=== PATIENT | male | born 1950 | race Caucasian/White ===

== ENCOUNTER → 2017-11-07 15:29 | Outpatient (CLI) | payer MEDICARE, SELFPAY ==
[2017-11-07 17:08] LABS: Add Manual Diff / Slide Review NO; Basophils Percent Auto 0.5 % (0-2); Eosinophils Percent Auto 2.1 % (2-4); Hematocrit 44.6 % (41-53); Hemoglobin 15.1 g/dL (13.5-17.5); Lymphocytes Percent Auto 14.8 % (25-40); Mean Corpuscular HGB Conc 33.7 % (30-36); Mean Corpuscular Hemoglobin 31.6 PG (26-34); Mean Corpuscular Volume 93.8 fL (80-100); Monocytes Percent Auto 5.4 % (3-14); Neutrophils Absolute Auto 5200 /uL (3000-5900); Neutrophils Percent Auto 77.2 % (50-75); Platelet Count 150 X10^3/uL (150-400); Red Blood Cell Count 4.76 X10^6/uL (4.5-5.9); Red Cell Distribution Width 13.6 % (11.6-14.8); White Blood Cell Count 6.7 X10^3/uL (4.5-11.0)
[2017-11-07 18:05] LABS: Alanine Aminotransferase 26 IU/L (21-72); Albumin 4.3 g/dL (3.5-5.0); Albumin Globulin Ratio 1.7 (1.0-2.8); Alkaline Phosphatase 44 U/L (38-126); Aspartate Aminotransferase 24 IU/L (17-59); BUN Creatinine Ratio 23.3 (6-22); Bilirubin Total 0.6 mg/dL (0.2-1.3); Blood Urea Nitrogen 21 mg/dL (9-20); Calcium 9.6 mg/dL (8.4-10.2); Carbon Dioxide 29 mmol/L (22-32); Chloride 102 mmol/L (98-107); Estimated Glomerular Filt Rate > 60.0 mL/min (>60); Globulin 2.6 g/dL (1.7-4.1); Glucose 89 mg/dL (80-110); HEMOLYSIS < 15 (0-50); Potassium 4.7 mmol/L (3.4-5.1); Sodium 141 mmol/L (137-145); Total Protein 6.9 g/dL (6.3-8.2)
== END ==
PROVIDERS: PCP Family Medicine; Visit Provider Surgery
DX: K40.90 Unilateral inguinal hernia, without obstruction or gangrene, not specified as recurrent (principal)
CPT/HCPCS: 36415; 80053; 85025; 99214

== ENCOUNTER → 2018-01-31 14:23 | Outpatient (REF) | payer MEDICARE, SELFPAY | LOC: LAB 14:23 | PROVIDERS: PCP Family Medicine; Visit Provider Nurse Practitioner Family | DX: R31.0 Gross hematuria (principal) | CPT/HCPCS: 87077; 87086 ==

== ENCOUNTER → 2018-02-01 08:47 | Outpatient (CLI) | payer MEDICARE, SELFPAY ==
--- NOTE | 2018-02-01 | DI.CT.S_ITS ---
PROCEDURE: CT KIDNEY URETER BLADDER (KUB) INDICATIONS: GROSS HEMATURIA, left flank pain TECHNIQUE: Noncontrast 5 mm thick sections acquired from the diaphragms to the symphysis. 5 mm thick coronal and sagittal reformats were then performed. For radiation dose reduction, the following was used: automated exposure control, adjustment of mA and/or kV according to patient size. COMPARISON: [facility], , CT KUB, 08/10/2002, 11:31. FINDINGS: Image quality: Excellent. Lung bases: There is mild scarring in the left lung base. Heart size is normal. A large hiatal hernia is present. Urinary system: There is a large heterogeneous mass involving the anterior aspect of the left kidney measuring up to 9.5 x 6.0 x 6.8 cm. There is extension into the renal hilum with likely invasion of the renal vein which is not well evaluated in the absence of intravenous contrast. There is also suspected invasion of the left renal collecting system. There is perinephric extension anteriorly and superiorly, with the mass abutting the os tear margin of the descending colon. Early colonic invasion cannot be excluded. No hydronephrosis. No discrete renal mass identified on noncontrast images. No renal stones. The ureters are nondistended. The urinary bladder is partially distended. No calcified renal stones. No discrete mass identified on noncontrast images. Other solid organs: There is a small cysts peripherally in the right hepatic lobe measuring up to 1.5 cm. A smaller focal hypodensity in the superior left hepatic lobe measuring up to 0.4 cm is too small to characterize but likely represents a cyst. Gallbladder appears within normal limits without calcified gallstones. Pancreas is normal in contours. Spleen is normal in size. No adrenal nodules. Peritoneum and bowel: Unenhanced bowel loops demonstrate normal wall thickness and caliber. There is colonic diverticulosis without acute diverticulitis. No free fluid or air. Nodes and vessels: No retroperitoneal or mesenteric adenopathy by size criteria. Aorta and inferior vena cava are normal in caliber. Abdominal wall: No ventral hernias. Pelvis: No free pelvic fluid. No inguinal hernias or adenopathy. Bones: No suspicious bony lesions. No vertebral body compression fractures. IMPRESSION: 1. Large heterogeneous left renal mass most likely representing renal cell carcinoma. 2. Suspected mass invasion of the left renal vein and left renal collecting system as well as possible early invasion of the descending colon. Further evaluation may be obtained with a contrast enhanced study, with CT IVP technique for evaluation of the collecting system, if clinically indicated. 3. No evidence of lymphadenopathy. Findings discussed with Dr. Fairhcild on 02/01/18 at 10:10 AM. Dictated by: Burt Uriarte M.D. on 02/01/2018 at 9:54 Approved by: Burt Uriarte M.D. on 02/01/2018 at 10:21
== END ==
PROVIDERS: PCP Family Medicine; Visit Provider Nurse Practitioner Family
DX: N28.89 Other specified disorders of kidney and ureter (principal); R31.0 Gross hematuria; R10.9 Unspecified abdominal pain; K76.89 Other specified diseases of liver; K57.90 Diverticulosis of intestine, part unspecified, without perforation or abscess without bleeding
CPT/HCPCS: 74176

== ENCOUNTER → 2018-02-03 13:34 | Outpatient (CLI) | payer MEDICARE, SELFPAY ==
--- NOTE | 2018-02-03 13:35 | DI.CT.S_ITS ---
PROCEDURE: CT CHEST W CON INDICATIONS: Left renal mass found on CT KUB TECHNIQUE: After the administration of intravenous contrast, 5 mm thick sections acquired from the pulmonary apices to the posterior costophrenic angles. 7 mm thick coronal and sagittal MIP reformats were acquired. For radiation dose reduction, the following was used: automated exposure control, adjustment of mA and/or kV according to patient size. COMPARISON: [facility], CT, CT KIDNEY URETER BLADDER (KUB), 02/01/2018, 8:47. FINDINGS: Image quality: Excellent. Lungs and pleura: No acute air space opacities. No pleural effusions or pneumothorax. Central and peripheral airways are patent and normal in caliber. Mediastinum: Heart size is normal. No pericardial effusion. No mediastinal or hilar adenopathy by size criteria. Thoracic aorta and central pulmonary arteries are normal in size. Esophagus is normal in caliber. There is a large hiatal hernia behind the heart. Bones and chest wall: No suspicious bony lesions. No vertebral body compression fractures. No axillary or supraclavicular adenopathy by size criteria. Thyroid gland appears normal where well visualized. Abdomen: Visualized upper abdominal solid organs appear normal except for the previously documented partially visualized large lobulated renal cortical mass on the left, consistent with renal cell carcinoma. Upper abdominal bowel loops are normal in caliber. IMPRESSION: Large lobulated left renal cortical malignancy by appearance, with a typical appearance of renal cortical carcinoma. No metastatic disease found. Incidental note is made of a large hiatal hernia behind the heart. Dictated by: Delvis Vazquez M.D. on 02/03/2018 at 14:36 Approved by: Delvis Vazquez M.D. on 02/03/2018 at 14:39
--- NOTE | 2018-02-03 13:35 | DI.CT.S_ITS ---
PROCEDURE: CT ABDOMEN PELVIS W CON INDICATIONS: LEFT KIDNEY MASS FOUND ON CT KUB TECHNIQUE: After the administration of intravenous contrast, 5 mm thick sections acquired from the diaphragm to the symphysis. 5 mm coronal and sagittal reformats were acquired. For radiation dose reduction, the following was used: automated exposure control, adjustment of mA and/or kV according to patient size. COMPARISON: None. FINDINGS: Image quality: Excellent. ABDOMEN: Lung bases: Lung bases are clear. Heart size is normal. A large hiatal hernia is present behind the heart. Solid organs: Liver is normal in size and enhancement. There are several small hepatic simple cysts. Gallbladder appears normal. Biliary system is non dilated. Pancreas enhances normally. Spleen is normal in size and enhancement. No adrenal nodules. The right kidney demonstrates normal size and enhancement, without hydronephrosis. The left kidney contains a large lobulated exophytic malignant appearing mass measuring up to 6.3 cm oblique AP and 9.9 cm oblique transverse with a craniocaudad length of 7.2 cm. This mass extends to and may invade the left renal hilar portion of the left renal vein but does not extend rightward from that area towards the IVC. The left renal vein course is retroaortic, as a normal anatomic variant. This may have surgical implications, however. Adjacent engorged the arteries and veins are seen in the retroperitoneal fat associated with this large mass. No adjacent adenopathy is seen. Note is made of an exophytic lower pole renal cortical mass measuring up to 4.1 cm. No right sided renal cortical mass is found. Peritoneum and bowel: Bowel loops demonstrate normal wall thickness and caliber. No free fluid or air. Nodes and vessels: No retroperitoneal or mesenteric adenopathy by size criteria. Aorta and inferior vena cava are normal in size. Miscellaneous: No ventral hernias. PELVIS: Genitourinary: Bladder wall thickness is normal. Miscellaneous: No inguinal hernias or adenopathy. Normal appendix is found. Bones: No suspicious bony lesions. No vertebral body compression fractures. IMPRESSION: Large malignant left renal cortical mass lesion measuring up to 6.3 x 9.9 x 7.2 cm and not associated with evidence of regional adenopathy or distant metastatic disease. This mass invades the renal sinus fat and may invade the far peripheral left renal vein, but extension into the renal vein and crossing towards the right towards the inferior vena cava is not identified. There is a normal anatomic variant retroaortic left renal vein. No osseous metastatic disease is seen. Note is made of several small water density hepatic cysts. Several renal cortical cysts are present the largest which is exophytic from the lower third cortex of the left kidney, measuring up to 4.1 cm. Incidental note is made of a large retroaortic hiatal hernia. Dictated by: Delvis Vazquez M.D. on 02/03/2018 at 14:41 Approved by: Delvis Vazquez M.D. on 02/03/2018 at 14:46
== END ==
PROVIDERS: PCP Family Medicine; Visit Provider Family Medicine
DX: C64.2 Malignant neoplasm of left kidney, except renal pelvis (principal); N28.1 Cyst of kidney, acquired; K76.89 Other specified diseases of liver; K44.9 Diaphragmatic hernia without obstruction or gangrene
CPT/HCPCS: 71260; 74177; Q9967

== ENCOUNTER 2018-07-05 13:08 | Outpatient (RCR) | payer MEDICARE, SELFPAY ==
--- NOTE | 2018-07-05 17:51 | PT.OIE ---
Current Diagnoses Meniere's disease, left ear (07/05/18) Stiffness of unspecified joint, not elsewhere classified (07/05/18) Dizziness and giddiness (07/05/18) Strain of muscle, fascia and tendon at neck level, initial encounter (07/05/18) Past Medical History (Last Reviewed 11/08/17 @ 11:51 by Nemesio Magallon MD) Duodenal diverticulum (Acute) Hiatal hernia (Acute) History of anemia (Acute) History of hemorrhoids (Acute) Osteoarthritis (Acute) Right inguinal hernia (Acute) Gastrointestinal hemorrhage (Resolved) Past Surgical History (Last Reviewed 11/08/17 @ 11:51 by Nemesio Magallon MD) History of colonoscopy (Acute) History of esophagogastroduodenoscopy (EGD) (Acute) Status post arthroscopic knee surgery (Acute) Status post hemorrhoidectomy (Acute) Provider Visit Care Team Role Provider Type Angus Fairchild MD Attending Provider Physician Primary Care Provider Specialty: [facility] Address: [address] [place] [address], [facility] Email: 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 Much of his session was spent discussing his Meniere's disease. Pt reports his first episode was 10-12 years ago, and since then, he has ~one episode each year, although they seem to be getting more frequent. Pt notes that during his episodes , he is unable to do anything . I'm completely incapacitated , basically just on the floor vomiting, and cannot get up to do anything. But after the episode is over, I'm fine. I have no balance problems at all. Pt notes his left hearing has been worsening dramatically since his initial episode, and is now almost completely deaf, but has near- constant ringing and pressure, worsening during an episode. Pt reports that he has quit drinking alcohol, smoking, drinking coffee, and drastically cut out the amount of salt in his diet, but he continues to have episodes. Pt admits that when he is not having an episode, he has high anxiety about when the next one will occur. In addition to his Meniere's symptoms, pt was diagnosed with renal cancer four months ago, and underwent the removal of one of his kidneys. During that time, he began experiencing neck pain, and after initially fearing that it was a sign his cancer had spread, he obtained a cervical CT, which was clean. Pt has since been to a chiropractor and a massage therapist, who have both told him his muscles are very tight, but they were unable to help his pain. Treatment Goals Patient/Caregiver Goals Understand possible treatment for Meniere's disease, decrease cervical pain Prior Functional Status Baseline Function- ADL's Independent Baseline Function- Mobility Independent Current Functional Impairments (Reported) Functional Limitations- ADL's Pt completely incapicated during Meniere's episode, no ongoing issues in-between episodes Personal Factors Other Personal Factors That May Effect Meniere's disease, Renal Therapy/Recovery cancer, Kidney removal PT-OP-C Subjective Start: 07/05/18 15:36 Freq: Status: Active Protocol: Document 07/05/18 13:45 DCW (Rec: 07/05/18 17:51 DCW [id number]) OP-PT Subjective Patient Comments Patient Reported Progress Worse Patient Questionnaires Dizziness Handicap Inventory DHI Score 30% DHI Functional Impairment 20 to 39% Impaired (Score 20- 39) PT-OP-F Manual Assessment Start: 07/05/18 15:36 Freq: Status: Active Protocol: Document 07/05/18 13:45 DCW (Rec: 07/05/18 17:51 DCW [id number]) Manual Assessments Soft Tissue Assessment Soft Tissue Mobility Assessment Severe bilateral upper trap and levator tone, tenderness to palpation 3/4 - Wincing and withdraw. At baseline, elevated left shoulder secondary to tone Joint Mobility Assessment Joint Mobility Assessment C4 vertebrae rotated clockwise out of position PT-OP-K Range of Motion Start: 07/05/18 15:36 Freq: Status: Active Protocol: Document 07/05/18 13:45 DCW (Rec: 07/05/18 17:51 DCW [id number]) Cervical Spine Range of Motion Cervical Spine Active Degrees Testing Position Sitting Flexion 55 Extension 40 Rotation Left 60 Rotation Right 50 Lateral Flexion Left 30 Lateral Flexion Right 25 Comments Pt at 5? left lateral flexion at rest PT-OP-L Special Tests Start: 07/05/18 15:36 Freq: Status: Active Protocol: Document 07/05/18 13:45 DCW (Rec: 07/05/18 17:51 DCW [id number]) Special Tests Cervical Spine Special Tests Traction Test Results Positive Comments That helps. Passive Neck Flexion Test Results Negative Comments Feels like it's stretching Foraminal Compression Test Results Negative Alar Ligament Test Results Negative PT-OP-Q Treatments Start: 07/05/18 15:36 Freq: Status: Active Protocol: Document 07/05/18 13:45 DCW (Rec: 07/05/18 17:51 DCW [id number]) Therapeutic Exercises Sitting Exercises Upper Trap Stretch Sitting Exercise Name Upper Trap Stretch Side bilateral Scalene Stretch Sitting Exercise Name Scalene stretch Side bilateral PT-OP-T Assessment and Plan Start: 07/05/18 15:36 Freq: Status: Active Protocol: Document 07/05/18 13:45 DCW (Rec: 07/05/18 17:51 DC [id number]) Physical Therapy Assessment Rehab Potential Rehabilitation Potential Fair Evaluation Complexity Number of Personal Factors/Comorbidities 3 or More Number of Body Systems Impaired 4 or More Clinical Presentation at Evaluation Unstable Impairments Impairments Pain Posture ROM Soft Tissue Mobility Vestibular Goals Three Impairment Tenderness to palpation of B UT and Levator 3/4 - Wincing and withdraw Manager [place] Goal (LTG) Pt to exhibit tenderness to palpation 1/4 - complaint of pain with palpation of bilateral upper trap and levator scap. LTG Duration 09/04/18 Two Impairment Pt has pain and stiffness trying to turn around when backing up in his car Manager [place] Goal (LTG) Pt to improve bilateral cervical rotation to 80? with no increase in symptoms to improve ease and safety when backing up his car LTG Duration 09/04/18 One Impairment Pt does not have an appropriate home exercise program Short Term Goal (STG) Pt to be independent and compliant with and appropriate HEP STG Duration 08/04/18 Assessment Summary Assessment Most of today's evaluation was spent discussing symptoms, management, possible causes and treatments for Meniere's disease. Unfortunately, due to the nature of Meniere's disease, vestibular rehabilitation is ineffective for treatment, unless pt has ongoing balance issues following a Meniere's episode, which this patient denies. Did discuss with pt what he has already been doing for Meniere's maintainence, including no longer drinking coffee or alcohol, quitting smoking, and limiting salt intake, which may help decrease symptoms. Pt was also interested in more extreme fixes, which may include an intratympanic injection of Gentamicin. Pt's neck pain was assessed in the time remaining, and his symptoms are consistent with severe tone in his upper traps and levators, causing a left lateral head tilt at rest and also causing his C4 vertebrae to become rotated clockwise. Pt's neck pain should improve with skilled therapy focusing on flexibility, strengthening, manual therapy, and heat to decrease tone. Physical Therapy Plan Frequency and Duration Frequency of Treatment 2x/Week Duration of Treatment 10 weeks Plan of Care Start Date 07/05/18 Plan of Care End Date 09/13/18 Therapeutic Interventions Therapeutic Interventions Home Exercise Program Joint Mobilizations Manual Therapy Patient/Caregiver Education Self-Care/Home Management Therapeutic Exercises Vestibular Rehabilitation Modalities Cold Pack/Ice Massage Hot Packs Next Visit Focus/Plan Next Note Type Treatment Note Next Visit Plan Cervical manual therapy, flexibility, cervical strengthening
--- NOTE | 2018-07-05 17:53 | PT.OPPOC ---
Current Diagnoses Meniere's disease, left ear (07/05/18) Stiffness of unspecified joint, not elsewhere classified (07/05/18) Dizziness and giddiness (07/05/18) Strain of muscle, fascia and tendon at neck level, initial encounter (07/05/18) Provider Visit Care Team Role Provider Type Angus Fairchild MD Attending Provider Physician Primary Care Provider Specialty: Family Practice Address: [address] [place] [address], [facility] Email: [email or web address] Plan Of Care PT-OP-T Assessment and Plan Start: 07/05/18 15:36 Freq: Status: Active Protocol: Document 07/05/18 13:45 DCW (Rec: 07/05/18 17:51 DCW [id number]) Physical Therapy Assessment Rehab Potential Rehabilitation Potential Fair Evaluation Complexity Number of Personal Factors/Comorbidities 3 or More Number of Body Systems Impaired 4 or More Clinical Presentation at Evaluation Unstable Impairments Impairments Pain Posture ROM Soft Tissue Mobility Vestibular Goals Three Impairment Tenderness to palpation of B UT and Levator 3/4 - Wincing and withdraw Skilled Nursing Goal (LTG) Pt to exhibit tenderness to palpation 1/4 - complaint of pain with palpation of bilateral upper trap and levator scap. 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 with no increase in symptoms to improve ease and safety when backing up his car LTG Duration 09/04/18 One Impairment Pt does not have an appropriate home exercise program Short Term Goal (STG) Pt to be independent and compliant with and appropriate HEP STG Duration 08/04/18 Assessment Summary Assessment Most of today's evaluation was spent discussing symptoms, managment, possible causes and treatments for Meniere's disease. Unfortunately, due to the nature of Meniere's disease, vestibular rehabilitation is ineffective for treatment, unless pt has ongoing balance issues following a Meniere's episode, which this patient denies. Did discuss with pt what he has already been doing for Meniere's maintainence, including no longer drinking coffee or alcohol, quitting smoking, and limiting salt intake, which may help decrease symptoms. Pt was also interested in more extreme fixes, which may include an intratympanic injection of Gentamicin. Pt's neck pain was assessed in the time remaining, and his symptoms are consistent with severe tone in his upper traps and levators, causing a left lateral head tilt at rest and also causing his C4 vertebrae to become rotated clockwise. Pt's neck pain should improve with skilled therapy focusing on flexibility, strengthening, manual therapy, and heat to decrease tone. Physical Therapy Plan Frequency and Duration Frequency of Treatment 2x/Week Duration of Treatment 10 weeks Plan of Care Start Date 07/05/18 Plan of Care End Date 09/13/18 Therapeutic Interventions Therapeutic Interventions Home Exercise Program Joint Mobilizations Manual Therapy Patient/Caregiver Education Self-Care/Home Management Therapeutic Exercises Vestibular Rehabilitation Modalities Cold Pack/Ice Massage Hot Packs Next Visit Focus/Plan Next Note Type Treatment Note Next Visit Plan Cervical manual therapy, flexibility, cervical strengthening Plan of Care Dates Plan of Care Start Date 07/05/18 Plan of Care End Date 09/13/18 Please Sign and Return: I have reviewed this Plan of Care and certify that the skilled therapy services above are required to meet the patient?s needs. Physician Signature Date Printed Name and Credentials Clinical Instructor Signature Printed Name and Credentials
--- NOTE | 2018-09-27 15:10 | PT.OPDS ---
Current Diagnoses Meniere's disease, left ear (07/05/18) Stiffness of unspecified joint, not elsewhere classified (07/05/18) Dizziness and giddiness (07/05/18) Strain of muscle, fascia and tendon at neck level, initial encounter (07/05/18) Provider Visit Care Team Role Provider Type Angus Fairchild MD Attending Provider Physician Primary Care Provider Specialty: [facility] Address: [address] [place] [address], [facility] Email: [email or web address] Visit Number Visit Number 1 Discharge Summary PT-OP-B Current Condition Start: 07/05/18 15:36 Freq: Status: Active Protocol: Document 07/05/18 13:45 DCW (Rec: 07/05/18 17:51 DCW [id number]) Current Condition History of Current Condition Onset Date vertigo s/p 10-12 years, cervical pain s/p 4 months Current Complaints Ongoing Meniere's Disease symptoms, cervical pain History of Current Condition Pt is a 68 year old male presenting to his physical therapy initial evaluation with a referral for vestibular rehabilitation and a cervical muscle strain. Much of his session was spent discussing his Meniere's disease. Pt reports his first episode was 10-12 years ago, and since then, he has ~one episode each year, although they seem to be getting more frequent. Pt notes that during his episodes , he is unable to do anything . I'm completely incapacitated , basically just on the floor vomiting, and cannot get up to do anything. But after the episode is over, I'm fine. I have no balance problems at all. Pt notes his left hearing has been worsening dramatically since his initial episode, and is now almost completely deaf, but has near- constant ringing and pressure, worsening during an episode. Pt reports that he has quit drinking alcohol, smoking, drinking coffee, and drastically cut out the amount of salt in his diet, but he continues to have episodes. Pt admits that when he is not having an episode, he has high anxiety about when the next one will occur. In addition to his Meniere's symptoms, pt was diagnosed with renal cancer four months ago, and underwent the removal of one of his kidneys. During that time, he began experiencing neck pain, and after initially fearing that it was a sign his cancer had spread, he obtained a cervical CT, which was clean. Pt has since been to a chiropractor and a massage therapist, who have both told him his muscles are very tight, but they were unable to help his pain. Treatment Goals Patient/Caregiver Goals Understand possible treatment for Meniere's disease, decrease cervical pain Prior Functional Status Baseline Function- ADL's Independent Baseline Function- Mobility Independent Current Functional Impairments (Reported) Functional Limitations- ADL's Pt completely incapicated during Meniere's episode, no ongoing issues in-between episodes Personal Factors Other Personal Factors That May Effect Meniere's disease, Renal Therapy/Recovery cancer, Kidney removal PT-OP-C Subjective Start: 07/05/18 15:36 Freq: Status: Active Protocol: Document 07/05/18 13:45 DCW (Rec: 07/05/18 17:51 DCW [id number]) OP-PT Subjective Patient Comments Patient Reported Progress Worse Patient Questionnaires Dizziness Handicap Inventory DHI Score 30% DHI Functional Impairment 20 to 39% Impaired (Score 20- 39) PT-OP-F Manual Assessment Start: 07/05/18 15:36 Freq: Status: Active Protocol: Document 07/05/18 13:45 DCW (Rec: 07/05/18 17:51 DCW [id number]) Manual Assessments Soft Tissue Assessment Soft Tissue Mobility Assessment Severe bilateral upper trap and levator tone, tenderness to palpation 3/4 - Wincing and withdraw. At baseline, elevated left shoulder secondary to tone Joint Mobility Assessment Joint Mobility Assessment C4 vertebrae rotated clockwise out of position PT-OP-K Range of Motion Start: 07/05/18 15:36 Freq: Status: Active Protocol: Document 07/05/18 13:45 DCW (Rec: 07/05/18 17:51 DCW [id number]) Cervical Spine Range of Motion Cervical Spine Active Degrees Testing Position Sitting Flexion 55 Extension 40 Rotation Left 60 Rotation Right 50 Lateral Flexion Left 30 Lateral Flexion Right 25 Comments Pt at 5? left lateral flexion at rest PT-OP-L Special Tests Start: 07/05/18 15:36 Freq: Status: Active Protocol: Document 07/05/18 13:45 DCW (Rec: 07/05/18 17:51 DCW [id number]) Special Tests Cervical Spine Special Tests Traction Test Results Positive Comments That helps. Passive Neck Flexion Test Results Negative Comments Feels like it's stretching Foraminal Compression Test Results Negative Alar Ligament Test Results Negative PT-OP-T Assessment and Plan Start: 07/05/18 15:36 Freq: Status: Active Protocol: Document 09/27/18 15:09 DC (Rec: 09/27/18 15:10 [facility] [id number]) Physical Therapy Assessment Goals Three Impairment Tenderness to palpation of B UT and Levator 3/4 - Wincing and withdraw Metal Riveter Goal (LTG) Pt to exhibit tenderness to palpation 1/4 - complaint of pain with palpation of bilateral upper trap and levator scap. LTG Duration 09/04/18 Two Impairment Pt has pain and stiffness trying to turn around when backing up in his car Longterm Goal (LTG) Pt to improve bilateral cervical rotation to 80? with no increase in symptoms to improve ease and safety when backing up his car LTG Duration 09/04/18 One Impairment Pt does not have an appropriate home exercise program Short Term Goal (STG) Pt to be independent and compliant with and appropriate HEP STG Duration 08/04/18 Assessment Summary Assessment Pt did not return for cervical treatment following his initial evaluation. Pt has now not been seen in more than two months, and will be discharged from skilled therapy at this time. Pt will require a new referral in order to return to therapy. Physical Therapy Plan Discharge Physical Therapy Discharge Reasons No Longer Attending PT Next Visit Focus/Plan Next Note Type Discharge Summary
== END 2018-09-28 11:03 | disposition home or self-care (01) ==
LOC: PHYS 13:08
PROVIDERS: PCP Family Medicine; Visit Provider Family Medicine
DX: R42 Dizziness and giddiness (principal); S16.1XXA Strain of muscle, fascia and tendon at neck level, initial encounter; M25.60 Stiffness of unspecified joint, not elsewhere classified; H81.02 Meniere's disease, left ear
CPT/HCPCS: 97110; 97162

== ENCOUNTER → 2019-01-24 07:48 | Outpatient (CLI) | payer MEDICARE, SELFPAY ==
--- NOTE | 2019-01-24 | DI.MRI.S_ITS ---
PROCEDURE: MR ANGIO HEAD WO CON INDICATIONS: Diplopia TECHNIQUE: Noncontrast axial 3-D [id number] MR angiogram, with 3-dimensional maximum intensity projection (MIP) reformats of the internal carotid arteries and posterior circulation then performed. COMPARISON: Brain MRI 01/12/02. FINDINGS: Image quality: Excellent. Anterior circulation: Intracranial internal carotid arteries demonstrate normal size and intraluminal flow signal. The flow within the paired anterior cerebral arteries is normal and symmetric. The flow within the middle cerebral arteries is normal and symmetric. The anterior communicating artery is seen. No stenoses, occlusions, or aneurysms. Posterior circulation: Visualized portions of the vertebral arteries demonstrate normal caliber, and join to form a normal appearing basilar artery. There is a prominent right posterior communicating artery seen, with an accompanying diminutive right P1 segment. This is attributed to a type origin of the right posterior cerebral artery, which is considered to be a normal developmental variant of typically no clinical consequence. The flow within the posterior cerebral arteries is normal and symmetric. No stenoses, occlusions, or aneurysms. IMPRESSION: No aneurysms or other significant abnormalities are seen to explain patient's presenting history of diplopia. If it would be helpful for clinical management decision making, please consider a dedicated orbits protocol MRI (without and with contrast). Dictated by: Jose D Walker M.D. on 01/24/2019 at 8:11 Approved by: Jose D Walker M.D. on 01/24/2019 at 8:13
== END ==
PROVIDERS: PCP Family Medicine; Visit Provider Nurse Practitioner Family
DX: H53.2 Diplopia (principal)
CPT/HCPCS: 70544

== ENCOUNTER → 2021-05-11 14:44 | Outpatient (CLI) | payer MEDICARE, SELFPAY ==
--- NOTE | 2021-05-11 | DI.US.S_ITS ---
PROCEDURE: US RENAL COMPLETE INDICATIONS: HISTORY OF RENAL CELL CARCINOMA TECHNIQUE: Real-time scanning was performed of the kidneys and bladder, with image documentation. COMPARISON: None. FINDINGS: Kidneys: Left kidney surgically absent. Right kidney measures 12.7 cm long. Right renal cortical thickness is 1.8 cm. Right renal cortical echotexture is normal. No right-sided hydronephrosis or nephrolithiasis. No right renal suspicious solid mass lesions. Bladder: Pre-void bladder volume is 185 mL. Post-void residual is 10 mL. Pre-void images demonstrate no intraluminal masses or stones. On pre-void images, both right and left ureteral jets are noted with color Doppler interrogation. (Of note, ureteral jets may not be detectable in up to 25% of cases due to insufficient differences in specific gravity between ureteral and bladder urine). Miscellaneous: No free pelvic fluid. IMPRESSION: 1. Status post left nephrectomy. 2. Right kidney is sonographically normal. 3. Bladder is sonographically normal. Dictated by: Tabitha Sparks MD, PhD on 05/11/2021 at 16:41 Approved by: Tabitha Sparks MD, PhD on 05/11/2021 at 16:43
== END ==
PROVIDERS: PCP Student in an Organized Health Care Education/Training Program; Referring Provider Urology; Visit Provider Urology
DX: Z08 Encounter for follow-up examination after completed treatment for malignant neoplasm (principal); Z85.528 Personal history of other malignant neoplasm of kidney; Z90.5 Acquired absence of kidney
CPT/HCPCS: 76770

== ENCOUNTER → 2021-07-29 11:02 | Outpatient (CLI) | payer MEDICARE, SELFPAY ==
[2021-07-29 14:32] LABS: COVID19 -Nasal RAPID Negative (Negative)
== END ==
PROVIDERS: PCP Student in an Organized Health Care Education/Training Program; Visit Provider Family Medicine Sleep Medicine
DX: Z20.822 Contact with and (suspected) exposure to COVID-19 (principal)
CPT/HCPCS: 87635; C9803

== ENCOUNTER 2021-07-31 13:31 | Day surgery (SDC) | payer MEDICARE, SELFPAY ==
[2021-07-31] VITALS (8 sets, daily range): BP systolic 102–122; BP diastolic 58–79; PULSE 55–74; RESP 13–21; TEMP 35.9–36.8; O2SAT 95–98; BMI 29.5
--- NOTE | 2021-07-31 | PATH_ITS ---
[facility] Accession Number: [id number] . 01 Material submitted: . PART A: colon - DESCENDING COLON POLYP 4MM PART B: colon - SIGMOID COLON POLYP 8MM . 02 Diagnosis: A. Descending Colon Polyp 4 mm: Tubular adenoma. . B. Sigmoid Colon Polyp 8 mm: Portions of tubular adenoma x 2. MRV 08/06/2021 1504 Local . 02 Electronically signed: . Alicia Amaya MD, Pathologist NPI- [id number] . 01 Gross description: . Part A: DESCENDING COLON POLYP 4MM: Received in formalin is 1 fragment(s) of minor, soft tissue measuring 0.4 x 0.3 x 0.3 cm submitted entirely in 1 cassette(s) Part B: SIGMOID COLON POLYP 8MM: Received in formalin are 2 fragment(s) of minor, soft tissue measuring 0.3 x 0.3 x 0.3 cm to 0.6 x 0.4 x 0.4 cm submitted entirely in 1 cassette(s) /FREDY 08/03/2021 1900 Local . 02 Pathologist provided ICD-10: K63.5, Z12.11 . 02 CPT . 504691, 042197 Specimen Comment: A courtesy copy of this report has been sent to [phone] Performed at: 01 [facility] [address] [facility], [place], [place] [id number] MD Burt Webster MD Phone: [phone] Performed at: 02 [facility] [address] [place], [place] [id number] MD Yadira Newsome MD Phone: [phone]
--- NOTE | 2021-07-31 12:31 | PM.HP.1 ---
History of Present Illness History of Present Illness Chief complaint: [facility] Narrative: 71 year old male comes in today for consideration of a screening colonoscopy. Last colonoscopy in 2010, history of colon polyps. FIT negative on 05/18/2021. In the last year, he has had epigastric pain and black stools, denies any current pain or melena. He has also been fatigued during this time, ongoing and progressive over the last 10 months. Baseline labs including CBC, CMP, TSH, UA, A1c, and PSA remarkable for slightly low platelets at 122. He has had low platelets over the last 6 years and is on no medications. He has been referred to Hematology for workup of his thrombocytopenia. There's been no family history of colon cancer or colon polyps. Overall health issues have been stable, including no major cardiac events for at least 6 weeks. PCP: Dr. 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 [place] x 6 years Patient History Medical History (Updated 07/30/21 @ 15:30 by Lilo Meraz RN) Duodenal diverticulum Fatigue Gastrointestinal hemorrhage Hiatal hernia History of anemia History of hemorrhoids Osteoarthritis Right inguinal hernia Surgical History (Updated 06/09/21 @ 12:11 by Luc Marshall MD) History of colonoscopy History of esophagogastroduodenoscopy (EGD) Status post arthroscopic knee surgery Status post hemorrhoidectomy Family & Social History Social History: household members spouse Tobacco & Substance use: Smoking Status Current every day smoker alcohol intake never Substance Use Type marijuana Meds Home Medications and Allergies Home Medications Medication Instructions Recorded Confirmed Type cholecalciferol (vitamin D3) 125 5,000 unit PO DAILY 11/07/17 07/31/21 History mcg (5,000 unit) capsule ergocalciferol (vitamin D2) 10 mcg 400 unit PO DAILY 11/07/17 07/31/21 History (400 unit) tablet ginkgo biloba 40 mg tablet 120 mg PO DAILY tab 11/07/17 07/31/21 History Allergies Allergy/AdvReac Type Severity Reaction Status Date / Time morphine AdvReac Intermediate Nausea Verified 07/31/21 13:46 oxycodone [From OxyContin] AdvReac Intermediate Nausea Verified 07/31/21 13:46 Review of Systems Review of Systems Narrative: All remaining ROS were reviewed and negative except as addressed. Exam Narrative Exam Narrative: GENERAL: Alert and oriented, appearing stated age and in no acute distress. HEENT: Head normocephalic/atraumatic. Extraocular movements intact. LUNGS: Clear to ausculation bilaterally, no wheezes, rhonchi or rales. CV: Normal S1 and S2 with regular rate and rhythm, no audible murmurs, rubs or gallops. ABDOMEN: Soft, non-tender, non-distended, no organomegaly. Positive bowel sounds. EXTREMITIES: No clubbing, cyanosis, or edema. NEURO: Cranial nerves II through XII grossly intact, no focal deficits. PSYCH: Alert and oriented x 3. SKIN: No concerning lesions. Assessment & Plan Assessment & Plan narrative: 1. History of colon polyps 2. Melena 3. Fatigue and weakness x 10 months 4. Epigastric pain 5. Screening for colon cancer Plan for colonoscopy. The nature and character of the procedure as well as anticipated results were discussed. The possibility of not completing the procedure was also discussed. Possible complications including aspiration pneumonia, bleeding, perforation and reaction to medications either for sedation or preparation and missed lesions were discussed. Questions were answered and proceeding to the colonoscopy was elected. Informed consent signed. I sincerely appreciate the referral allowing me to participate in this patient's care. Please contact me with any questions or concerns.
--- NOTE | 2021-07-31 12:37 | PM.OP.COLON ---
Operative Date/Time/Diagnoses Date of procedure: 07/31/21 Procedure Notes SCOAP/Timeout: 2:18 p.m. Procedure in detail: ENDOSCOPIST: Laura Queen MD Sedation RN: Julia Hernandez RN Sedation start time: 2:19 p.m. Sedation end time: 2:50 p.m. PROCEDURE: Colonoscopy with cold snare and methylene blue left INDICATIONS: 1. History of colon polyps 2. Melena 3. Fatigue and weakness x 10 months 4. Epigastric pain 5. Screening for colon cancer MEDICATION: Levsin 0.125 mg sublingual, incremental doses of Versed and fentanyl until appropriate level sedation achieved. ASA CLASS: 2 CECAL WITHDRAWAL TIME: 21 minutes COMPLICATIONS: None. EXTENT OF PROCEDURE: Cecum. QUALITY OF PREP: Good with portions of liquid stool. PROCEDURE: Prior to insertion of the colonoscope, a digital rectal examination was accomplished with circumferential palpation of the distal rectal mucosa without significant findings being noted. The high-definition colonoscope was passed into the rectum in the usual fashion and advanced over to the cecum without difficulty. The ileocecal valve, appendiceal stoma, and medial wall all could be inspected and no abnormalities were seen. ASCENDING COLON: As the colonoscope was withdrawn, care was taken to expose and inspect the haustral folds and no abnormalities were seen. HEPATIC FLEXURE: Normal, no polyps, diverticula or other abnormalities. TRANSVERSE COLON: Normal, no polyps, diverticula or other abnormalities. DESCENDING COLON: A 4 mm polyp was seen and removed with cold biopsy forceps. Moderate diverticulosis. SIGMOID COLON: An 8 mm polyp was seen and lifted with methylene blue and removed with cold snare, excellent hemostasis. Otherwise, moderate diverticulosis and no other abnormalities. RECTUM: Normal. J maneuver was produced. There was no significant perianal disease. The J maneuver was broken. The remainder of the rectum was inspected and there was moderate external hemorrhoid disease, with 1 thrombosed hemorrhoid at 6 o'clock. The hemorrhoid was injected with methylene blue with full uptake, confirming no adenomatous tissue was present. The scope was withdrawn. IMPRESSION: 1. Descending polyp x1, 4 mm, removed with cold biopsy forceps 2. Sigmoid polyp x1, 8 mm, lifted with methylene blue and removed with cold biopsy forceps 3. External hemorrhoids, moderate, 1 thrombosed hemorrhoid at 6 o'clock. PLAN: 1. Follow-up in clinic status post pathology results. The possibility of a missed lesion including a malignancy has been discussed with the patient previously. Potential alarm symptoms have been discussed and should be reported immediately.
[2021-07-31] MEDS: HYOSCYAMINE 0.125 MG TABLET PO (13:57)
[2021-07-31] MEDS: LACTATED RINGERS 1,000 ML 200 ML IV (13:58)
[2021-07-31] MEDS: ONDANSETRON 4 MG/2 ML INJ IV ×2 (14:20→15:20)
[2021-07-31] MEDS: fentaNYL 250 MCG/5 ML INJ 100 MCG IV (14:29)
[2021-07-31] MEDS: MIDAZOLAM 5 MG/5 ML VIAL IV (14:29)
[2021-07-31] MEDS: METHYLENE BLUE 50 MG/10 ML VIAL INJ (14:48)
== END 2021-07-31 16:10 | disposition home or self-care (01) ==
PROVIDERS: PCP Student in an Organized Health Care Education/Training Program; Referring Provider Student in an Organized Health Care Education/Training Program; Visit Provider Student in an Organized Health Care Education/Training Program
PROC: 0DJD8ZZ Inspection of Lower Intestinal Tract, Via Natural or Artificial Opening Endoscopic (ICD-10-PCS; CPT 45378; principal; 2021-07-31 14:30)
DX: K92.1 Melena (principal); Z86.010 Personal history of colon polyps; R10.13 Epigastric pain; R53.83 Other fatigue; R53.1 Weakness; K64.4 Residual hemorrhoidal skin tags; D12.4 Benign neoplasm of descending colon; D12.5 Benign neoplasm of sigmoid colon
CPT/HCPCS: 45385; 45381; 45380; J2250; J2405; J3010; Q9968

== ENCOUNTER → 2022-03-18 10:16 | Outpatient (CLI) | payer OTHER, MEDICARE, SELFPAY ==
[2022-03-18 12:19] LABS: Add Manual Diff / Slide Review NO; Basophils Absolute Auto 0 /uL (0-100); Basophils Percent Auto 0.3 % (0-2); Eosinophils Absolute Auto 100 /uL (0-450); Eosinophils Percent Auto 2.3 % (2-4); Hematocrit 32.5 % (41-53); Hemoglobin 10.6 g/dL (13.5-17.5); Lymphocytes Absolute Auto 700 /uL (1100-4500); Lymphocytes Percent Auto 11.8 % (25-40); Mean Corpuscular HGB Conc 32.7 % (30-36); Mean Corpuscular Hemoglobin 29.7 PG (26-34); Mean Corpuscular Volume 90.8 fL (80-100); Monocytes Absolute Auto 500 /uL (0-900); Monocytes Percent Auto 8.5 % (3-14); Neutrophils Absolute Auto 4600 /uL (1500-7000); Neutrophils Percent Auto 77.1 % (50-75); Platelet Count 193 X10^3/uL (150-400); Red Blood Cell Count 3.58 X10^6/uL (4.5-5.9); Red Cell Distribution Width 14.2 % (11.6-14.8)
[2022-03-18 12:51] LABS: Alanine Aminotransferase 17 IU/L (<50); Albumin 3.9 g/dL (3.5-5.0); Albumin Globulin Ratio 1.4 (1.0-2.8); Alkaline Phosphatase 52 U/L (38-126); Aspartate Aminotransferase 20 IU/L (17-59); BUN Creatinine Ratio 16.8 (6-22); Bilirubin Total 0.2 mg/dL (0.2-1.3); Blood Urea Nitrogen 28 mg/dL (9-20); Carbon Dioxide 26 mmol/L (22-32); Chloride 109 mmol/L (98-107); Estimated Glomerular Filt Rate 44 mL/min (>60); Globulin 2.7 g/dL (1.7-4.1); Glucose 87 mg/dL (80-110); HEMOLYSIS < 15 (0-50); Potassium 4.8 mmol/L (3.4-5.1); Sodium 141 mmol/L (137-145); Total Protein 6.6 g/dL (6.3-8.2)
[2022-03-18 15:27] LABS: Hemoglobin A1C% w Est Avg Glu 5.2 % (4.0-6.0)
== END ==
PROVIDERS: PCP Student in an Organized Health Care Education/Training Program; Referring Provider Registered Nurse; Visit Provider Registered Nurse
DX: Z13.1 Encounter for screening for diabetes mellitus (principal); Z90.5 Acquired absence of kidney
CPT/HCPCS: 36415; 80053; 83036; 85025

== ENCOUNTER → 2022-03-30 10:16 | Outpatient (CLI) | payer MEDICARE, SELFPAY ==
--- NOTE | 2022-03-30 | DI.US.S_ITS ---
PROCEDURE: US RENAL COMPLETE INDICATIONS: CHRONIC KIDNEY DISEASE STAGE 3 TECHNIQUE: Real-time scanning was performed of the kidneys and bladder, with image documentation. COMPARISON: [facility], CT, CT ABDOMEN WITHOUT CONTRAST, 06/17/2020, 16:54. [facility], US, US RENAL COMPLETE, 05/11/2021, 14:51. FINDINGS: Kidneys: The right kidney measures 12.3 cm in length. No nephrolithiasis or hydronephrosis. The cortex measures 1.8 cm in thickness. A 1.0 cm simple cyst is present within the right kidney. The left kidney is surgically absent. Bladder: Pre-void bladder volume is 159 mL. Post-void residual is 16 mL. Pre-void images demonstrate no intraluminal masses or stones. On pre-void images, neither ureteral jets are noted with color Doppler interrogation. (Of note, ureteral jets may not be detectable in up to 25% of cases due to insufficient differences in specific gravity between ureteral and bladder urine). Miscellaneous: Echogenic foci are noted within the prostate suggesting calcification. IMPRESSION: No right hydronephrosis or nephrolithiasis. Small postvoid residual. Dictated by: Emilia Mandel M.D. on 03/30/2022 at 11:29 Approved by: Emilia Mandel M.D. on 03/30/2022 at 11:32
== END ==
PROVIDERS: PCP Student in an Organized Health Care Education/Training Program; Referring Provider Internal Medicine; Visit Provider Internal Medicine
DX: N18.30 Chronic kidney disease, stage 3 unspecified (principal)
CPT/HCPCS: 76770

== ENCOUNTER → 2022-03-30 11:19 | Outpatient (CLI) | payer OTHER, SELFPAY | PROVIDERS: PCP Registered Nurse; Referring Provider Orthopaedic Surgery Foot and Ankle Surgery; Visit Provider Orthopaedic Surgery Foot and Ankle Surgery | DX: Z01.818 Encounter for other preprocedural examination (principal) | CPT/HCPCS: 93005 ==

== ENCOUNTER → 2022-04-07 10:02 | Outpatient (CLI) | payer OTHER, SELFPAY ==
[2022-04-07 11:04] LABS: COVID19 -Nasal RAPID Negative (Negative)
== END ==
PROVIDERS: PCP Registered Nurse; Referring Provider Orthopaedic Surgery Foot and Ankle Surgery; Visit Provider Orthopaedic Surgery Foot and Ankle Surgery
DX: Z20.822 Contact with and (suspected) exposure to COVID-19 (principal)
CPT/HCPCS: 87635; C9803

== ENCOUNTER 2022-04-09 06:16 | Day surgery (SDC) | payer OTHER, SELFPAY ==
[2022-03-31 10:51] VITALS: BMI 31.7
[2022-04-09] VITALS (15 sets, daily range): BP systolic 111–131; BP diastolic 41–75; PULSE 56–72; RESP 15–18; TEMP 36.1–37.2; O2SAT 89–97; BMI 31.7
[2022-04-09] MEDS: TRANEXAMIC ACID 1,000 MG VIAL 1000 MG INJ ×2 (00:04→10:09)
--- NOTE | 2022-04-09 06:00 | DI.RAD.S_ITS ---
PROCEDURE: XR KNEE RT 1TO2V INDICATIONS: prosthesis placement TECHNIQUE: 2 view(s) of the knee acquired. COMPARISON: Located Within [facility], , KNEE 3V RIGHT, 05/10/2008, 14:07. Located Within [facility], , KNEE 3V LEFT, 10/12/2006, 16:51. FINDINGS: Bones: Patient is status post knee joint arthroplasty. Hardware components are in expected positions. Visualized bony structures are intact. Soft tissues: Overlying postoperative changes are noted. IMPRESSION: Expected postoperative appearance of the right knee arthroplasty. Dictated by: Jean Claude Downs M.D. on 04/09/2022 at 13:04 Approved by: Jean Claude Downs M.D. on 04/09/2022 at 13:04
[2022-04-09] MEDS: ACETAMINOPHEN 325 MG TABLET 975 MG PO (06:53)
[2022-04-09] MEDS: PREGABALIN 75 MG CAPSULE PO (06:54)
[2022-04-09] MEDS: LACTATED RINGERS 1,000 ML 42 ML IV ×2 (06:55→09:25)
--- NOTE | 2022-04-09 07:08 | PM.PREOP ---
Pre-operative Note COVID-19 COVID-19 status: Negative Interval Note History & Physical reviewed/Exam performed by Physician: Yes Changes to H&P: No
[2022-04-09] MEDS: CEFAZOLIN 2 GM/100 ML PREMIX 100 ML IV (07:45)
--- NOTE | 2022-04-09 08:22 | SUR.OPER ---
Supine on padded OR bed. Pillow under head, arms secured on padded armboards <90 degree abduction. Safety belt across torso. Non-operative leg secured with tape over blanket over lower leg. Operative leg secured in DeMayo/Bentley/Nathe positioner. Foam padded brace at thigh of operative leg.
[2022-04-09] MEDS: BUPIVACAINE LIPOSOME 266 MG/20 ML VIAL INJ (08:28)
[2022-04-09] MEDS: BUPIVACAINE 0.5% W/ EPI (PF) 30 ML VIAL INJ (08:29)
--- NOTE | 2022-04-09 10:54 | SUR.PHASEI ---
Dr Gilbert at bedside 1050. Pt hoping to dc home today. Doing well. Will standby for this goal as long as meets criteria. Xray completed 1055.
[2022-04-09] MEDS: TRAMADOL 50 MG TABLET PO (11:05)
[2022-04-09] MEDS: ONDANSETRON 4 MG/2 ML INJ IV (11:06)
[2022-04-09] MEDS: HYDROMORPHONE 2 MG INJ 0.5 MG IV (11:40)
--- NOTE | 2022-04-09 11:40 | P.OP_ITS ---
Operative Date/Time/Diagnoses Date of procedure: 04/09/22 Time of procedure: 08:30 Pre-op diagnosis: Knee arthritis right Post-op diagnosis: same Procedure & Clinicians Procedure: Total knee arthroplasty right CPT code 77228 Same procedure as scheduled: Yes Indications: Patient is a 72-year-old male. The patient has significant pain associated with osteoarthritis of the knee. It is associated with morning stiffness. Pain interferes with daily normal function including ambulation standing and any activities that are weight-bearing. It interferes with sleep. There is crepitation with range of motion. There is marked joint line tenderness. X- rays show significant levels of osteoarthritis. Double attempted previous conservative treatment has been rendered. The patient has failed exercise program, medications and previous injections. Patient is indicated for total knee arthroplasty. The risks and benefits of the procedure have been discussed with the patient and given the opportunity to ask questions. The risks of surgery include but are not limited to infection, malunion, nonunion, persistence of pain, damage to nerves and blood vessels, posttraumatic arthritis, DVT, PE, cardiopulmonary complications and . The patient expressed a thorough understanding of the risks and benefits of surgery and has elected to proceed. Consent was signed. During the operation, the services of a physician nursing surgical services director were medically indicated and necessary to provide the exposure of the operative site for the surgical procedure and to maintain the limb in a proper position to carry out the operation safely and efficiently. Without a qualified data entry assistant being present this would extended the operative procedure and made the procedure technically more difficult to perform. Surgeon: Elizabeth Gilbert [employer]: Sofía Moser Anesthesia Type: General, Spinal and Local Operative Notes Findings: End-stage knee arthritis involving all 3 compartments. Large osteophytes Closure Type: primary Specimen(s): none sent Prosthetic devices, grafts, tissues, transplants, or devices: Vargas and nephew journey 2 bi cruciate stabilized cobalt chromium femur size 8 right Tibia size 7 right journey non porous Patella 35 x 7.5 janice 2 round Right size 7-8 9 mm journey 2 bi CS poly insert Estimated Blood Loss (mL): 50 Blood products transfused: none Tourniquet time (min): 109 Procedure in detail: The patient was seen in the preoperative area where the patient and site of surgery were identified in the operative knee was marked informed consent confirmed. This was the right knee. Patient received the appropriate preoperative antibiotics this was 2 g of Ancef. And other preoperative medications and was taken to the operating room placed on operating table in the supine position. Spinal anesthetic were administered. The operative extremity was then prepped and draped in the standard sterile fashion with a nonsterile tourniquet high on the thigh. Patient was placed on the green foam bolsters. A lateral post was placed at the level of the proximal thigh /trochanter area as a lateral post. Formal time-out procedure was performed confirming the patient's side and site of surgery and administration of appropriate preoperative antibiotics and implants were in the room accounted for. All were in agreement. Patient received a preoperative dose of tranexamic acid and then a 2nd dose at tourniquet release Patient was prepped and draped in the standard sterile fashion and the foot was placed into the [facility] leg lopez. This was taken into high flexion and the incision was marked out over the anterior knee to the level of the medial tubercle tubercle. The Esmarch was then used for exsanguination and the tourniquet was inflated to 250 mmHg. Was made through the skin and subcutaneous tissue in high flexion this was then brought down into 30? of flexion for the medial parapatellar arthrotomy. A marker pen was used to brandon the arthrotomy site for later repair. Joint fluid was evacuated. The anterior osteophytes and soft tissues were removed. Routine medial release was initially made along the medial proximal tibia with Bovie. The patella was 1st cut using the saw sized and prepped and then subluxed throughout the case and protected. The leg was then taken into extension and the patella was everted and the patella was cut to accommodate the patellar button. This was sized to a 35 mm button for a 7.5 mm thickness to recreate the original dimensions of the patella. Poly was removed and the protector replaced and the patella was subluxed and the knee was taken back up into flexion and attention was returned to the femur. Then the rotational landmarks of Whitesides line and the trans epicondylar axis were marked on the femur with electrocautery. Then the intramedullary guide for the femur was drilled. The distal femoral cut was made in 6? of valgus using the intramedullary guide with the cut setting on 2+ as the patient did have a preoperative flexion contracture. The ACL and PCL were released. The proximal tibia was then cut using the intramedullary guide, taking 9 mm off the less involved side this was the lateral plateau. The Nick wing was used to check the slope through the guide. Second pass was made through the tibial cut guide with the saw after the cut tibia was removed plane down about 1 more mm and further smooth then the resection surface. In extension remainders of the medial and lateral menisci were removed. The extension flexion gaps were then checked using both the flexion extension blocks. And was selected for a 9 mm poly femur was then sized and the rotation set using the posterior condyle referencing 3? of external rotation. This measured a size 8. Cut block was then placed and the anterior, posterior and chamfer cuts were then made. The posterior osteophytes and soft tissues were then removed. Then in extension the posterior capsule was injected with a mixture of 40 mL of 0.25% Marcaine and 20 mL of Exparel care to avoid excessive injection posterior laterally. The remainder of this was saved for the capsule and subcutaneous tissue and placed during cement curing. Attention was then returned to the tibia and this was prepared with the rotation set by the intramedullary guide. Lined up with the tibial crest and the 2nd toe. The tibial trial was then pinned in place and the trial femoral components were placed. Then the intercondylar notch was cut through the femoral trial to create the box this was done with the distal than the proximal drill and then the box cut distally and then proximally. Next the insert was placed and the trial poly placed. This was stable in flexion and extension and there was a 0- 135 degree range of motion. The tibia was then finished with the drill and flange cuts and then this was removed. All trials were removed. The wound and bone was irrigated with pulsatile lavage. This was then dried with a sponge. The components were verified and opened and the cement was mixed. Cement was applied to the components and then to the bone then the tibia was cemented in place 1st followed by the femur then the patella. Excess cement was removed. With care looking around the back of the knee. Remainder of the injection was injected around the capsule. trial poly was placed back in the leg was placed into extension for the patellar cementing. After this was cured approximately 15 minutes later and the dilute Betadine solution was placed for at least 3 minutes in the wound this was then irrigated out and the final poly was placed. This was a 9 mm poly. The tourniquet was released hemostasis was achieved. Final 1g of tranexamic acid was given IV at the time of tourniquet release. The capsule was closed with 1. Ethibond suture. Subcutaneous layer was closed with 3-0 Vicryl suture. Skin was closed with a running V lock suture Stratafix Monocryl type suture and Dermabond. An Aquacel dressing was placed. An Raza wrap was applied. Anesthetic was terminated the patient was woken from anesthesia and taken to recovery room in good condition. There no immediate complications from this procedure. The patient will be maintained on a standard total knee replacement protocol with weight-bearing as tolerated. Complications: none Post-operative Condition: stable Disposition: PACU Plan for aftercare: Weightbear as tolerated. Plan will be discharge same day surgery. The patient has received medications at home he has gabapentin, oxycodone and Zofran. He will start taking aspirin 81 mg b.i.d. for DVT prophylaxis. He will follow up i n 2 weeks.
--- NOTE | 2022-04-09 11:53 | SUR.PHASEI ---
Pt with 2/10 pain control after IV admin of Dilaudid. Sats 92% on 2LNC. Thinks he can move and walk now and says medication helped tremendously. Will continue to monitor. Hopes to DC home still.
--- NOTE | 2022-04-09 12:02 | SUR.PHASEI ---
Pt satting 92% when sleeping, continues on 2LNC. States pain very tolerable, 04/13. BP 124/75 HR 68 SR, RR 15. Since admission to PACU, denies any abnormality in sensation, is able to lift RLE, bilateral equal sensation to both legs, but RLE weak. Spinal has worn off.
--- NOTE | 2022-04-09 12:35 | SUR.PHASEII ---
Report received. Continuous pulse ox in place. CPAP in place. Call light within reach.
--- NOTE | 2022-04-09 13:04 | SUR.PHASEI ---
Nursing staff unable to maintain patient's oxygen saturation above 84% on room air; patient on oxygen via nasal cannula at 3 liters; patient also not able to maintain oxygen saturations on CPAP. Notified inpatient unit of need to transfer patient to room 221. Awaiting nurse to nurse report.
--- NOTE | 2022-04-09 13:24 | DI.RAD.S_ITS ---
PROCEDURE: XR CHEST 1V INDICATIONS: Decreased sats TECHNIQUE: One view of the chest was acquired. COMPARISON: [facility], CR, CHEST 2 VIEW, 02/10/2009, 10:25. [facility], CT, CT CHEST W CON, 02/03/2018, 13:33. [facility], CR, XR CHEST 2 VIEWS, 09/29/2018, 16:47. FINDINGS: Surgical changes and devices: None. Lungs and pleura: On this semiupright portable chest examination, no large pneumothorax or large pleural effusions are seen. No focal infiltrates are seen. Low lung volumes are noted. This causes a crowded appearance to the lung markings and limits evaluation. Generalized interstitial prominence can be seen Mediastinum: Mediastinal contours appear normal. Heart size is mildly to moderately enlarged. There is a large hiatal hernia. Bones and chest wall: Age-appropriate bony degenerative changes are seen. No suspicious bony lesions. Overlying soft tissues appear unremarkable. IMPRESSION: Low lung volumes with generalized interstitial prominence. There is [id number] cardiomegaly. Please consider pulmonary edema/CHF. Large hiatal hernia noted. Dictated by: Jose D Walker M.D. on 04/09/2022 at 12:37 Approved by: Jose D Walker M.D. on 04/09/2022 at 12:38
--- NOTE | 2022-04-09 13:24 | SUR.PHASEI ---
Notified Dr Gilbert of oxygen saturation; patient denies any pain or SOB; encouraging deep breathing; turned off oxygen to assess oxygenation and portable CXR in progress. Will update inpatient nurse and Dr Gilbert of findings.
--- NOTE | 2022-04-09 14:24 | SUR.PHASEII ---
1405 Pt o2 94% on room air and then dropping to around 80% when sleeping. Dr Gilbert at bedside, assessed pt and stated that they were able to discharge home. Coached pt on using IS and using CPAP when sleeping at home.
== END 2022-04-09 14:18 | disposition home or self-care (01) ==
LOC: OR 06:17 → AC 06:20
PROVIDERS: PCP Registered Nurse; Referring Provider Orthopaedic Surgery Foot and Ankle Surgery; Visit Provider Orthopaedic Surgery Foot and Ankle Surgery
PROC: 0SRC0JZ Replacement of Right Knee Joint with Synthetic Substitute, Open Approach (ICD-10-PCS; CPT 27447; principal; 2022-04-09 07:45)
DX: M17.11 Unilateral primary osteoarthritis, right knee (principal); Z90.5 Acquired absence of kidney; D53.9 Nutritional anemia, unspecified; G47.30 Sleep apnea, unspecified; M25.761 Osteophyte, right knee
CPT/HCPCS: 27447; 71045; 73560; C1776; C1713; C9290; J0690; J1100; J1170; J2250; J2405; J2704; J3010

== ENCOUNTER 2022-05-20 17:00 | Observation (INO) | payer OTHER, SELFPAY ==
[2022-05-20] VITALS (22 sets, daily range): BP systolic 110–167; BP diastolic 67–90; PULSE 69–78; RESP 13–25; TEMP 36.6–36.9; O2SAT 95–97; BMI 29.5
[2022-05-20 17:40] LABS: Add Manual Diff / Slide Review NO; Basophils Absolute Auto 0 /uL (0-100); Basophils Percent Auto 0.6 % (0-2); Eosinophils Absolute Auto 200 /uL (0-450); Eosinophils Percent Auto 3.3 % (2-4); Hemoglobin 9.8 g/dL (13.5-17.5); Lymphocytes Absolute Auto 900 /uL (1100-4500); Lymphocytes Percent Auto 14.7 % (25-40); Mean Corpuscular HGB Conc 31.6 % (30-36); Mean Corpuscular Hemoglobin 26.1 PG (26-34); Mean Corpuscular Volume 82.5 fL (80-100); Monocytes Absolute Auto 500 /uL (0-900); Monocytes Percent Auto 8.6 % (3-14); Neutrophils Absolute Auto 4400 /uL (1500-7000); Neutrophils Percent Auto 72.8 % (50-75); Platelet Count 327 X10^3/uL (150-400); Red Blood Cell Count 3.76 X10^6/uL (4.5-5.9); Red Cell Distribution Width 17.1 % (11.6-14.8); White Blood Cell Count 6.1 X10^3/uL (4.5-11.0)
[2022-05-20 17:53] LABS: Alanine Aminotransferase 16 IU/L (<50); Albumin Globulin Ratio 1.1 (1.0-2.8); Alkaline Phosphatase 61 U/L (38-126); Aspartate Aminotransferase 17 IU/L (17-59); BUN Creatinine Ratio 20.8 (6-22); Bilirubin Total 0.2 mg/dL (0.2-1.3); Blood Urea Nitrogen 22 mg/dL (9-20); Calcium 9.3 mg/dL (8.4-10.2); Carbon Dioxide 24 mmol/L (22-32); Chloride 107 mmol/L (98-107); Estimated Glomerular Filt Rate > 60 mL/min (>60); Globulin 3.5 g/dL (1.7-4.1); Glucose 107 mg/dL (80-110); HEMOLYSIS < 15 (0-50); Lactate (Lactic Acid) 1.4 mmol/L (0.7-2.1); Sodium 143 mmol/L (137-145); Total Protein 7.5 g/dL (6.3-8.2)
--- NOTE | 2022-05-20 18:06 | ED_ITS ---
HPI - GI Bleed General Chief complaint: GI Bleed Stated complaint: BP LOW/STOOL IS BLACK Time Seen by Provider: 05/20/22 17:15 Source: patient Mode of arrival: Ambulatory Limitations: no limitations History of Present Illness HPI Narrative: This is a 72-year-old male with history of GI bleed with no clear source, renal cell carcinoma with prior nephrectomy. Patient states he is felt lightheaded dizzy like he is going to pass out but has not had a syncopal episode. He is felt short of breath, no chest pain or pressure. Patient states he gets nauseated when he eats and he will get pain in his epigastric area. He states he has not been vomiting. He states he is had black tarry stools but no bright red blood. He states stools have not been diarrhea. Patient states he had similar like stools before and had a GI bleed with upper and lower scope without a clear source found but was told he had a hiatal at that time. Patient states no urinary symptoms. No new swelling in extremities. Patient states symptoms have been present for quite some time but slowly worsening. He denies fevers or chills. No cold cough or congestion. Patient states he did have knee surgery which is healed. He is stopped taking any pain medication. States he is following with surveillance for his renal cell carcinoma is kidney was removed about 4 years ago and he had an ultrasound in March which was negative. Dashawn smith denies any daily prescription medications. No known drug allergies. Kaylee is his primary care provider. Patient is a former smoker, occasional alcohol, occasional THC. Related Data Home Medications Medication Instructions Recorded Confirmed cholecalciferol (vitamin D3) 125 5,000 unit PO DAILY 11/07/17 04/09/22 mcg (5,000 unit) capsule ergocalciferol (vitamin D2) 10 mcg 400 unit PO DAILY 11/07/17 04/09/22 (400 unit) tablet ginkgo biloba 40 mg tablet 120 mg PO DAILY 11/07/17 04/09/22 acetaminophen 500 mg tablet 500 mg PO Q6H PRN Pain 03/31/22 04/09/22 ascorbic acid (vitamin C) 1,000 mg 1,000 mg PO DAILY 04/09/22 04/09/22 tablet (Vitamin C) ferrous sulfate 325 mg (65 mg 325 mg PO DAILY 04/09/22 04/09/22 iron) tablet (iron) Allergies Allergy/AdvReac Type Severity Reaction Status Date / Time morphine AdvReac Intermediate Nausea Verified 05/20/22 17:12 NSAIDS (Non-Steroidal AdvReac Intermediate Verified 05/20/22 17:12 Anti-Inflamma oxycodone [From OxyContin] AdvReac Intermediate Nausea Verified 05/20/22 17:12 narcotics AdvReac Intermediate Nausea Uncoded 03/31/22 11:05 Review of Systems Review of Systems ROS Unobtainable: All systems reviewed & are unremarkable except as noted in HPI and below Patient History Medical History Anesthesia complication BCC (basal cell carcinoma), face (~01/2022) Cancer of kidney (~2016) CKD (chronic kidney disease), stage III COVID-19 virus infection (02/22/22) Duodenal diverticulum Fatigue Gastrointestinal hemorrhage Hearing impaired Hiatal hernia History of anemia History of hemorrhoids BERENICE on CPAP Osteoarthritis Right inguinal hernia Surgical History History of colonoscopy History of esophagogastroduodenoscopy (EGD) History of left nephrectomy (2016) Hx of hernia repair (11/29/17) Hx of knee surgery (~1976) Status post hemorrhoidectomy Social History marital status: household members: spouse Smoking Status: Former smoker alcohol intake: never substance use type: marijuana Smoking Status: Former smoker alcohol intake frequency: holidays/special occasions only Substance Use Type: marijuana Exam Narrative Exam Narrative: GENERAL: Alert and oriented x three, male in mild distress. Slightly pale. HEENT: Head normocephalic, atraumatic, EOMI, pupils reactive, face symmetric, moist mucous membranes NECK: Supple, full range of motion CARDIOVASCULAR: Regular rate and rhythm without murmurs, rubs or gallops. RESPIRATORY: Breath sounds equal bilaterally, no wheezes rales or rhonchi. ABDOMEN: Soft, nontender. Nondistended. Normoactive bowel sounds all 4 quadrants. No guarding or rebound, rigidity, no mass. Digital rectal exam is politely deferred by patient. : No CVA tenderness EXTREMITIES: Normal range of motion, no clubbing or edema. Neurovascularly int act NEUROLOGICAL: Cranial nerves II through XII grossly intact. Moving all extremities SKIN: Warm, dry, no petechiae, no rashes or lesions. Initial Vital Signs Initial Vital Signs: Vital Signs Temperature 98.5 F 05/20/22 17:05 Pulse Rate 78 05/20/22 17:05 Respiratory Rate 17 05/20/22 17:05 Blood Pressure 167/85 H 05/20/22 17:05 Pulse Oximetry 96 05/20/22 17:05 Oxygen Delivery Method 05/20/22 17:05 Course Orders Ordered: ED Orders 05/20/22 17:09 EKG-12 Lead Stat 05/20/22 17:20 Complete Blood Count AUTO DIFF Stat Comprehensive Metabolic Panel Stat Lactate (Lactic Acid) Stat Partial Thromboplastin Time Stat Prothrombin Time INR Stat Type and Screen Stat 05/20/22 18:40 COVID19 -Nasal RAPID/Pre-Proc Stat Sodium Chloride (Normal Saline 0.9%) 1,000 mls @ 125 mls/hr IV CONT GALO Ondansetron HCl (Ondansetron 4 Mg/2 Ml Inj) 4 mg IV NOW PRN PRN Reason: Nausea And Vomiting Ondansetron HCl (Ondansetron 4 Mg Odt) 4 mg SL NOW PRN PRN Reason: Nausea And Vomiting Ondansetron HCl (Ondansetron 4 Mg/2 Ml Inj) 4 mg IV Q4HR PRN PRN Reason: Nausea And Vomiting Discontinued Medications Pantoprazole Sodium (Pantoprazole 40 Mg Vial) 80 mg IV NOW ONE Stop: 05/20/22 18:28 Last Admin: 05/20/22 18:32 Dose: 80 mg Documented By: RB Vital Signs Vital signs: Vital Signs - 8 hr 05/20/22 17:05 05/20/22 17:10 05/20/22 17:10 Temperature 98.5 F Pulse Rate 78 75 Respiratory Rate 17 Blood Pressure 167/85 H 167/89 H Pulse Oximetry 96 97 Oxygen Delivery Method Room Air 05/20/22 17:15 05/20/22 17:30 05/20/22 17:38 Temperature Pulse Rate 73 74 72 Respiratory Rate 23 22 25 H Blood Pressure Pulse Oximetry 97 97 97 Oxygen Delivery Method 05/20/22 17:38 05/20/22 17:45 05/20/22 17:45 Temperature Pulse Rate 70 Respiratory Rate 23 Blood Pressure 143/80 H 134/85 Pulse Oximetry 97 Oxygen Delivery Method 05/20/22 18:00 05/20/22 18:00 05/20/22 18:15 Temperature Pulse Rate 72 Respiratory Rate 21 Blood Pressure 132/85 153/90 H Pulse Oximetry 97 Oxygen Delivery Method 05/20/22 18:15 05/20/22 18:30 05/20/22 18:30 Temperature Pulse Rate 70 70 Respiratory Rate 18 23 Blood Pressure 142/84 H Pulse Oximetry 97 97 Oxygen Delivery Method 05/20/22 18:45 05/20/22 18:45 Temperature Pulse Rate 71 Respiratory Rate 17 Blood Pressure 141/86 H Pulse Oximetry 97 Oxygen Delivery Method MDM - GI Bleed Lab Data 05/20/22 17:20 05/20/22 17:20 Labs: Lab Results 05/20/22 05/20/22 05/20/22 Range/Units 17:20 17:20 17:20 WBC 6.1 (4.5-11.0) X10^3/uL RBC 3.76 L (4.5-5.9) X10^6/uL Hgb 9.8 L (13.5-17.5) g/dL Hct 31.0 L (41-53) % MCV 82.5 (80-100) fL MCH 26.1 (26-34) PG MCHC 31.6 (30-36) % RDW 17.1 H (11.6-14.8) % Plt Count 327 (150-400) X10^3/uL Neut % (Auto) 72.8 (50-75) % Lymph % (Auto) 14.7 L (25-40) % [place] % (Auto) 8.6 (3-14) % Eos % (Auto) 3.3 (2-4) % Baso % (Auto) 0.6 (0-2) % Neut # (Auto) 4400 (9402-4518) /uL Lymph # (Auto) 900 L (1764-0362) /uL [place] # (Auto) 500 (0-900) /uL Eos # (Auto) 200 (0-450) /uL Baso # (Auto) 0 (0-100) /uL PT 11.8 (10.1-12.7) SECONDS INR 1.0 (0.9-1.3) APTT 27 (26-36) SECONDS Sodium 143 (137-145) mmol/L Potassium 4.0 (3.4-5.1) mmol/L Chloride 107 (98-107) mmol/L Carbon Dioxide 24 (22-32) mmol/L BUN 22 H (9-20) mg/dL Creatinine 1.06 (0.66-1.25) mg/dL Estimated GFR > 60 (>60) mL/min BUN/Creatinine Ratio 20.8 (6-22) Glucose 107 (80-110) mg/dL Lactate (0.7-2.1) mmol/L Calcium 9.3 (8.4-10.2) mg/dL Total Bilirubin 0.2 (0.2-1.3) mg/dL AST 17 (17-59) IU/L ALT 16 (<50) IU/L Alkaline Phosphatase 61 (38-126) U/L Total Protein 7.5 (6.3-8.2) g/dL Albumin 4.0 (3.5-5.0) g/dL Globulin 3.5 (1.7-4.1) g/dL Albumin/Globulin Ratio 1.1 (1.0-2.8) SARS-CoV-2 (PCR) (Negative) Blood Type Antibody Screen 05/20/22 05/20/22 05/20/22 Range/Units 17:20 17:20 18:40 WBC (4.5-11.0) X10^3/uL RBC (4.5-5.9) X10^6/uL Hgb (13.5-17.5) g/dL Hct (41-53) % MCV (80-100) fL MCH (26-34) PG MCHC (30-36) % RDW (11.6-14.8) % Plt Count (150-400) X10^3/uL Neut % (Auto) (50-75) % Lymph % (Auto) (25-40) % [place] % (Auto) (3-14) % Eos % (Auto) (2-4) % Baso % (Auto) (0-2) % Neut # (Auto) (2763-3834) /uL Lymph # (Auto) (0742-6329) /uL [place] # (Auto) (0-900) /uL Eos # (Auto) (0-450) /uL Baso # (Auto) (0-100) /uL PT (10.1-12.7) SECONDS INR (0.9-1.3) APTT (26-36) SECONDS Sodium (137-145) mmol/L Potassium (3.4-5.1) mmol/L Chloride (98-107) mmol/L Carbon Dioxide (22-32) mmol/L BUN (9-20) mg/dL Creatinine (0.66-1.25) mg/dL Estimated GFR (>60) mL/min BUN/Creatinine Ratio (6-22) Glucose (80-110) mg/dL Lactate 1.4 (0.7-2.1) mmol/L Calcium (8.4-10.2) mg/dL Total Bilirubin (0.2-1.3) mg/dL AST (17-59) IU/L ALT (<50) IU/L Alkaline Phosphatase (38-126) U/L Total Protein (6.3-8.2) g/dL Albumin (3.5-5.0) g/dL Globulin (1.7-4.1) g/dL Albumin/Globulin Ratio (1.0-2.8) SARS-CoV-2 (PCR) Negative (Negative) Blood Type A Negative Antibody Screen Negative ECG Data Attestation: I personally reviewed and interpreted this ECG as follows: Prior ECG tracings: available for review Interpretation: Sinus rhythm incomplete right bundle, rate of 76 AR 158 QRS of 102 and QTC 423. No acute ST changes appreciated. Patient what looks like artifactual change V5 otherwise appears similar to prior. MDM Narrative Medical decision making narrative: This is a 72-year-old male who presents with complaint of persistent melena with symptoms consistent with anemia. Hemoglobin today is 9.8 he was 10.6 in March but 13.5 in June of 2021. Coags are negative. CMP is negative except for BUN being slightly elevated at 22 normal renal function and LFTs. Patient notes stool samples were sent for testing on Tuesday not able to see these system and he does not know the results. Patient has renal ultrasound from 03/30/2022 right kidney has a 1 cm simple cyst left kidney surgically absent there is some echogenic foci of the prostate suggesting calcification. Patient's vitals here appropriate. But based on his symptoms discussed with hospitalist for observation. Spoke with [facility] hospitalist who accepts asked for contact back after speaking with General surgery about whether or not to prep patient for scope tomorrow. Spoke with Dr. Fontanez, general surgery: Plan for possible upper endoscopy tomorrow so does not require prep tonight. If this is negative then patient can be prepped for lower scope. Recontacted Dr. Cruz and accepted for observation. Hospitalist noted patient is [place] patient and under Dr. Abdullahi. Spoke with Dr. Abdullahi, she accepts for observation, bridging orders put in and patient has type and screen. Discussed general surgery recommendations. Discharge Plan Departure Patient Disposition: Admitted as Observation Clinical Impression: Symptomatic anemia, GI bleed Admit Date/Time: 05/20/22 19:43 Admit Provider: Dalila Abdullahi
[2022-05-20 18:10] LABS: Prothrombin Time 11.8 SECONDS (10.1-12.7)
[2022-05-20 18:13] LABS: PTT Partial Thromboplastin Tim 27 SECONDS (26-36)
[2022-05-20] MEDS: PANTOPRAZOLE 40 MG VIAL 80 MG IV (18:32)
[2022-05-20 19:14] LABS: COVID19 -Nasal RAPID Negative (Negative)
[2022-05-20 21:53] LABS: Hematocrit 28.7 % (41-53); Hemoglobin 9.1 g/dL (13.5-17.5)
[2022-05-20] MEDS: SODIUM CHLORIDE 0.9% 1,000 ML 125 ML IV (22:17)
[2022-05-20] MEDS: LORazepam 2 MG/ML INJ 0.5 MG IV (22:34)
[2022-05-21] VITALS (14 sets, daily range): BP systolic 114–143; BP diastolic 65–95; PULSE 63–78; RESP 14–24; TEMP 36.4–37.3; O2SAT 85–99; BMI 29.5
--- NOTE | 2022-05-21 | PATH_ITS ---
[facility] Accession Number: [id number] No. of containers..02 Tissue . 01 Material submitted: . PART A: pylorus - PYLORUS LESIONS PART B: pyloric antrum - LINEAR PYLORIC . 01 Clinical history: . A) R/O H. PYLORI . 01 Diagnosis: A. 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 Negative for Helicobacter organisms by immunohistochemistry. Negative for intestinal metaplasia. Negative for dysplasia or malignancy. . B. Stomach, Linear Pyloric Lesions, Biopsies: Gastric antral mucosa with reactive foveolar hyperplasia. Negative for Helicobacter organisms by immunohistochemistry. Negative for intestinal metaplasia. Negative for dysplasia or malignancy. [facility] 05/28/2022 1426 Local . 01 Electronically signed: . Ajit Ruano MD, PhD, Pathologist NPI- [id number] . 01 Gross description: . A. Received in formalin, labeled with the patient's name, , and pyloric lesions, and consists of multiple minor soft tissue fragments aggregating to 1.7 x 0.6 x 0.1 cm. The specimen is filtered into a biopsy bag and submitted entirely in cassette A1. B. Received in formalin, labeled with the patient's name, , and linear pyloric lesions, and consists of three minor soft tissue fragments ranging from 0.2 cm to 0.3 cm in greatest dimension. Submitted entirely in cassette B1. ([id number]) /Emil 05/22/2022 1405 Local . 01 Microscopic: . A. An immunohistochemical stain was performed to evaluate for Helicobacter organisms and is negative. The control stain showed appropriate reactivity. . B. An immunohistochemical stain was performed to evaluate for Helicobacter organisms and is negative. The control stain showed appropriate reactivity. . * This test was developed and its performance characteristics determined by [facility]. It has not been cleared or approved by the U.S. Food and Drug Administration. The FDA has determined that such clearance or approval is not necessary. This test is used for clinical purposes. It should not be regarded as investigational or for research. . 01 Pathologist provided ICD-10: K31.9 . 01 CPT . 900674, 520002, F33834 Specimen Comment: A courtesy copy of this report has been sent to [phone] Performed at: 01 [facility] Cyt[facility] [address] [place] [address] [id number] MD Burt Webster MD Phone: [phone]
[2022-05-21 05:37] LABS: Alanine Aminotransferase 13 IU/L (<50); Albumin 3.3 g/dL (3.5-5.0); Albumin Globulin Ratio 1.1 (1.0-2.8); Alkaline Phosphatase 54 U/L (38-126); Aspartate Aminotransferase 16 IU/L (17-59); BUN Creatinine Ratio 17.8 (6-22); Bilirubin Total 0.3 mg/dL (0.2-1.3); Blood Urea Nitrogen 18 mg/dL (9-20); Calcium 8.8 mg/dL (8.4-10.2); Carbon Dioxide 23 mmol/L (22-32); Chloride 109 mmol/L (98-107); Estimated Glomerular Filt Rate > 60 mL/min (>60); Globulin 2.9 g/dL (1.7-4.1); Glucose 92 mg/dL (80-110); HEMOLYSIS < 15 (0-50); Sodium 139 mmol/L (137-145); Total Protein 6.2 g/dL (6.3-8.2)
[2022-05-21 05:58] LABS: Add Manual Diff / Slide Review NO; Basophils Absolute Auto 0 /uL (0-100); Basophils Percent Auto 0.6 % (0-2); Eosinophils Absolute Auto 200 /uL (0-450); Eosinophils Percent Auto 3.9 % (2-4); Hematocrit 27.8 % (41-53); Hemoglobin 8.8 g/dL (13.5-17.5); Lymphocytes Absolute Auto 800 /uL (1100-4500); Lymphocytes Percent Auto 16.5 % (25-40); Mean Corpuscular HGB Conc 31.6 % (30-36); Mean Corpuscular Volume 82.2 fL (80-100); Monocytes Absolute Auto 400 /uL (0-900); Monocytes Percent Auto 8.7 % (3-14); Neutrophils Absolute Auto 3500 /uL (1500-7000); Neutrophils Percent Auto 70.3 % (50-75); Platelet Count 274 X10^3/uL (150-400); Red Blood Cell Count 3.38 X10^6/uL (4.5-5.9); Red Cell Distribution Width 17.4 % (11.6-14.8)
[2022-05-21 06:40] LABS: Percent Iron Saturation 5 % (20-50)
--- NOTE | 2022-05-21 08:19 | P.HP_ITS ---
History of Present Illness History of Present Illness Date Patient Seen: 05/21/22 Time Patient Seen: 08:20 Chief complaint: BP LOW/STOOL IS BLACK Narrative: Patient is a 72-year-old white male who presents today with increased fatigue. Patient has a history over the last 2 years of increasing fatigue intermittent black tarry stools. Patient had EGD and colonoscopy 2 years ago which showed a hiatal hernia but no other definitive findings. Patient has had persistent fatigue and pretty significant shortness of breath intermittently. No other significant change. No fevers no chills no nausea no vomiting. No real abdominal pain. Patient had decided he could fix his hiatal hernia by himself and did not present to the doctor at any time. No other changes. Patient had knee surgery on March 10 and since that time has been increasingly fatigued and short of breath. feels like he is pale. But he has made no other changes. Since surgery and maybe for the last 2 years he is had increasing feeling of feeling full. She is been worse over the last month. He is lost 20 lb over the last month and has a big appetite but then once he starts to eat he fills up quickly. Otherwise no significant change. He is had no night sweats. Or other change. Patient otherwise is healthy with no major medical problems. No significant family history. No other changes Patient History Medical History Anesthesia complication BCC (basal cell carcinoma), face (~01/2022) Cancer of kidney (~2016) CKD (chronic kidney disease), stage III COVID-19 virus infection (02/22/22) Duodenal diverticulum Fatigue Gastrointestinal hemorrhage Hearing impaired Hiatal hernia History of anemia History of hemorrhoids BERENICE on CPAP Osteoarthritis Right inguinal hernia Surgical History History of colonoscopy History of esophagogastroduodenoscopy (EGD) History of left nephrectomy (2016) Hx of hernia repair (11/29/17) Hx of knee surgery (~1976) Status post hemorrhoidectomy Family & Social History Social History: household members spouse Safety & Behavioral: Feels Safe in Current Yes Environment Been Physically Hurt or No Threatened By a Person Tobacco & Substance use: Smoking Status Former smoker alcohol intake never alcohol intake frequency holiday/special occasion Substance Use Type marijuana Meds Home Medications and Allergies Home Medications Medication Instructions Recorded Confirmed Type cholecalciferol (vitamin D3) 125 5,000 unit PO DAILY 11/07/17 05/20/22 History mcg (5,000 unit) capsule ergocalciferol (vitamin D2) 10 mcg 400 unit PO DAILY 11/07/17 05/20/22 History (400 unit) tablet ginkgo biloba 40 mg tablet 120 mg PO DAILY 11/07/17 05/20/22 History acetaminophen 500 mg tablet 500 mg PO Q6H PRN Pain 03/31/22 05/20/22 History ascorbic acid (vitamin C) 1,000 mg 1,000 mg PO DAILY 04/09/22 05/20/22 History tablet (Vitamin C) ferrous sulfate 325 mg (65 mg 325 mg PO DAILY 04/09/22 05/20/22 History iron) tablet (iron) Allergies Allergy/AdvReac Type Severity Reaction Status Date / Time morphine AdvReac Intermediate Nausea Verified 05/20/22 17:12 NSAIDS (Non-Steroidal AdvReac Intermediate Verified 05/20/22 17:12 Anti-Inflamma oxycodone [From OxyContin] AdvReac Intermediate Nausea Verified 05/20/22 17:12 narcotics AdvReac Intermediate Nausea Uncoded 03/31/22 11:05 Review of Systems Review of Systems Narrative: See above otherwise negative Exam Vital Signs (past 8 hours): - 05/21/22 02:04 05/21/22 05:39 Temperature 98.5 F 97.9 F Pulse Rate 70 69 Respiratory Rate 21 18 Blood Pressure 127/74 Pulse Oximetry 93 96 Oxygen Flow Rate 0 0 Oxygen Delivery Method Room Air Oxygen Flow Rate 0 Narrative Exam Narrative: Alert elderly male in no acute distress lying in bed comfortably. Pale in appearance. Bulbar conjunctiva are pale. Mucous membranes moist. Neck supple without adenopathy. Lungs are clear. Heart is regular rate and rhythm without murmurs clicks rubs or gallops. Abdomen is soft positive bowel sounds no hepatosplenomegaly no masses. Extremities without cyanosis clubbing edema. Neurologic exam is nonfocal and unremarkable Objective Labs 05/21/22 04:55 05/21/22 04:55 Labs: Laboratory Results - last 24 hr 05/20/22 05/20/22 05/20/22 17:20 17:20 17:20 WBC 6.1 RBC 3.76 L Hgb 9.8 L Hct 31.0 L MCV 82.5 MCH 26.1 MCHC 31.6 RDW 17.1 H Plt Count 327 Neut % (Auto) 72.8 Lymph % (Auto) 14.7 L [place] % (Auto) 8.6 Eos % (Auto) 3.3 Baso % (Auto) 0.6 Neut # (Auto) 4400 Lymph # (Auto) 900 L [place] # (Auto) 500 Eos # (Auto) 200 Baso # (Auto) 0 PT 11.8 INR 1.0 APTT 27 Sodium 143 Potassium 4.0 Chloride 107 Carbon Dioxide 24 BUN 22 H Creatinine 1.06 Estimated GFR > 60 BUN/Creatinine Ratio 20.8 Glucose 107 Lactate Calcium 9.3 % Saturation Total Bilirubin 0.2 AST 17 ALT 16 Alkaline Phosphatase 61 Total Protein 7.5 Albumin 4.0 Globulin 3.5 Albumin/Globulin Ratio 1.1 SARS-CoV-2 (PCR) Blood Type Antibody Screen 05/20/22 05/20/22 05/20/22 17:20 17:20 18:40 WBC RBC Hgb Hct MCV MCH MCHC RDW Plt Count Neut % (Auto) Lymph % (Auto) [place] % (Auto) Eos % (Auto) Baso % (Auto) Neut # (Auto) Lymph # (Auto) [place] # (Auto) Eos # (Auto) Baso # (Auto) PT INR APTT Sodium Potassium Chloride Carbon Dioxide BUN Creatinine Estimated GFR BUN/Creatinine Ratio Glucose Lactate 1.4 Calcium % Saturation Total Bilirubin AST ALT Alkaline Phosphatase Total Protein Albumin Globulin Albumin/Globulin Ratio SARS-CoV-2 (PCR) Negative Blood Type A Negative Antibody Screen Negative 05/20/22 05/21/22 05/21/22 21:45 04:55 04:55 WBC 5.0 RBC 3.38 L Hgb 9.1 L 8.8 L Hct 28.7 L 27.8 L MCV 82.2 MCH 26.0 MCHC 31.6 RDW 17.4 H Plt Count 274 Neut % (Auto) 70.3 Lymph % (Auto) 16.5 L [place] % (Auto) 8.7 Eos % (Auto) 3.9 Baso % (Auto) 0.6 Neut # (Auto) 3500 Lymph # (Auto) 800 L [place] # (Auto) 400 Eos # (Auto) 200 Baso # (Auto) 0 PT INR APTT Sodium Potassium Chloride Carbon Dioxide BUN Creatinine Estimated GFR BUN/Creatinine Ratio Glucose Lactate Calcium % Saturation 5 L Total Bilirubin AST ALT Alkaline Phosphatase Total Protein Albumin Globulin Albumin/Globulin Ratio SARS-CoV-2 (PCR) Blood Type Antibody Screen 05/21/22 04:55 WBC RBC Hgb Hct MCV MCH MCHC RDW Plt Count Neut % (Auto) Lymph % (Auto) [place] % (Auto) Eos % (Auto) Baso % (Auto) Neut # (Auto) Lymph # (Auto) [place] # (Auto) Eos # (Auto) Baso # (Auto) PT INR APTT Sodium 139 Potassium 4.0 Chloride 109 H Carbon Dioxide 23 BUN 18 Creatinine 1.01 Estimated GFR > 60 BUN/Creatinine Ratio 17.8 Glucose 92 Lactate Calcium 8.8 % Saturation Total Bilirubin 0.3 AST 16 L ALT 13 Alkaline Phosphatase 54 Total Protein 6.2 L Albumin 3.3 L Globulin 2.9 Albumin/Globulin Ratio 1.1 SARS-CoV-2 (PCR) Blood Type Antibody Screen Assessment & Plan Assessment & Plan narrative: GI bleed. Probable upper. Concerning for longstanding issue. Certainly history of previous evaluation does not sound like it found anything. Will have to see what EGD shows if not will have colonoscopy. If those are negative will need to consider pill camera for small-bowel disease. May need to discuss with surgeon about CT scan but will see how things go. Weight loss. Pretty significant. Certainly seems gastric by history but will see what happens. Will need to be worked up if negative. Fatigue and shortness of breath. Probably secondary to above but will see. Unlikely cardiac. Code status full. GI prophylaxis due to bleed will hold medication. Mechanical only. Disposition. Hopefully EGD today and re-evaluate after that. Will continue NPO and fluids 37 min on chart review nursing patient time and documentation and orders. Time Spent With Patient Critical Care time: I spent a total of [] minutes of critical care time on this patient's care today; this time is exclusive of procedural time.
--- NOTE | 2022-05-21 09:00 | CM.DANOTE ---
DCP: Case received, EMR reviewed and met with patient. Introduced self and role. Was able to obtain information regarding patient's baseline activity level at home prior to hospitalization. DCP assessment completed with information currently available. Patient is a 72 year old male who admitted yesterday evening to the care of the hospitalist team. PCP: Dr. Page. Payer: confirmed: Medicare. Patient came to the hospital via private vehicle secondary to having dizziness, lightheadedness, nausea when eating. Patient has history of GI bleed. Patient did indicate that he had black tarry stools, but no bright red blood. Patient was admitted for GI Bleed, and plans to have an EGD today. Met with patient in his room. Dr. Keller had seen him and just left the room. Patient is alert and oriented. Confirmed that patient resides on [facility], here in [place], with spouse, Anh. At his baseline, he is independent, drives, and has a cane. P: DCP to continue to follow. Plan is home when deemed medically stable. Jyoti Singh RN/Logistics Support Discharge Planning/Care Management CM Discharge Assessment Start: 05/21/22 08:58 Freq: Status: Active Protocol: Document 05/21/22 08:58 (Rec: 05/21/22 08:59 [id number]) Discharge Planning Assessment Assigned [employer] Racker Jyoti Singh RN/Logistics Support Advance Directives? Yes Advance Directives on File No History Provided By Patient,Medical Record Household Members spouse Type of transporation used prior to Drives own vehicle admit Caregiver for Another No DME Already Rented / Owned Cane Barriers to Discharge No Discharge Plan Home Transportation Arrangement Spouse Referrals Initiated None needed Whiteboard Updated in Patient Room with Yes name and ext. # of Dry [employer] Racker Review Status In Process Next Review Type Continued Stay Review
--- NOTE | 2022-05-21 09:03 | PC.NURSE ---
Addendum entered by Yajaira Maldonado R.N. 05/21/22 12:48: done. He is lying in bed now and resting with NS at 125cc/hr infusing. Addendum entered by Yajaira Maldonado R.N. 05/21/22 12:46: Patient just got back from PACU after his EGD. Per Pacu he had healing ulcers and biopsy Addendum entered by Yajaira Maldonado R.N. 05/21/22 10:26: Patient down to OR for EGD around 1000am. Original Note: Patient denies pain, his bowel tones are positive but hypoactive. Patient has been NPO since midnight as he may have a possible EGD today. He is up with one person assist, and he is using his urinal at bedside. He has ivf and patient is tolerating this well.
--- NOTE | 2022-05-21 11:13 | P.CONS_ITS ---
History of Present Illness Consult details Date Patient Seen: 05/21/22 Chief complaint: BP LOW/STOOL IS BLACK Reason for consult: Upper GI bleed Narrative: Mr. Haynes presented to the emergency room with dark tarry stools. His hemoglobin 2 points dropped to 8.8. He felt a little lightheaded and dizzy. He has had a GI bleed in the past and had a colonoscopy in July 2021. This exam was largely unremarkable and he did not have any problems afterwards. He has been experiencing epigastric pain with eating and he says he is lost about 20 lb in the last month or so. Some of this he attributes to a recent knee surgery and the pain medicine that he was on was suppressing his appetite. Overall the recovery from that surgery was a little more difficult than he anticipated and he thinks that that might have something to do with causing this to flare. He suspects that he has a stomach ulcer or he said cancer. But he wants like to know what it is and he understands procedure and would like to proceed. Meds Home Medications and Allergies Home Medications Medication Instructions Recorded Confirmed Type cholecalciferol (vitamin D3) 125 5,000 unit PO DAILY 11/07/17 05/20/22 History mcg (5,000 unit) capsule ergocalciferol (vitamin D2) 10 mcg 400 unit PO DAILY 11/07/17 05/20/22 History (400 unit) tablet ginkgo biloba 40 mg tablet 120 mg PO DAILY 11/07/17 05/20/22 History acetaminophen 500 mg tablet 500 mg PO Q6H PRN Pain 03/31/22 05/20/22 History ascorbic acid (vitamin C) 1,000 mg 1,000 mg PO DAILY 04/09/22 05/20/22 History tablet (Vitamin C) ferrous sulfate 325 mg (65 mg 325 mg PO DAILY 04/09/22 05/20/22 History iron) tablet (iron) Allergies Allergy/AdvReac Type Severity Reaction Status Date / Time morphine AdvReac Intermediate Nausea Verified 05/20/22 17:12 NSAIDS (Non-Steroidal AdvReac Intermediate Verified 05/20/22 17:12 Anti-Inflamma oxycodone [From OxyContin] AdvReac Intermediate Nausea Verified 05/20/22 17:12 narcotics AdvReac Intermediate Nausea Uncoded 03/31/22 11:05 Exam Vital Signs (past 8 hours): - 05/21/22 05:39 05/21/22 08:00 05/21/22 10:11 Temperature 97.9 F 97.7 F 98.3 F Pulse Rate 69 65 66 Respiratory Rate 18 16 18 Blood Pressure 127/74 139/85 130/77 Pulse Oximetry 96 96 97 Oxygen Delivery Method Room Air Oxygen Flow Rate 0 Oxygen Delivery Method Room Air Oxygen Flow Rate 0 Const General: cooperative, healthy appearing and comfortable Eyes General: appearance normal, both eyes and all related structures Resp Effort & Inspection: normal respiratory effort and able to speak in complete sentences GI Palpation: soft and No tender Objective Labs 05/21/22 04:55 05/21/22 04:55 Labs: Laboratory Results - last 24 hr 05/20/22 05/20/22 05/20/22 17:20 17:20 17:20 WBC 6.1 RBC 3.76 L Hgb 9.8 L Hct 31.0 L MCV 82.5 MCH 26.1 MCHC 31.6 RDW 17.1 H Plt Count 327 Neut % (Auto) 72.8 Lymph % (Auto) 14.7 L [place] % (Auto) 8.6 Eos % (Auto) 3.3 Baso % (Auto) 0.6 Neut # (Auto) 4400 Lymph # (Auto) 900 L [place] # (Auto) 500 Eos # (Auto) 200 Baso # (Auto) 0 PT 11.8 INR 1.0 APTT 27 Sodium 143 Potassium 4.0 Chloride 107 Carbon Dioxide 24 BUN 22 H Creatinine 1.06 Estimated GFR > 60 BUN/Creatinine Ratio 20.8 Glucose 107 Lactate Calcium 9.3 % Saturation Total Bilirubin 0.2 AST 17 ALT 16 Alkaline Phosphatase 61 Total Protein 7.5 Albumin 4.0 Globulin 3.5 Albumin/Globulin Ratio 1.1 SARS-CoV-2 (PCR) Blood Type Antibody Screen 05/20/22 05/20/22 05/20/22 17:20 17:20 18:40 WBC RBC Hgb Hct MCV MCH MCHC RDW Plt Count Neut % (Auto) Lymph % (Auto) [place] % (Auto) Eos % (Auto) Baso % (Auto) Neut # (Auto) Lymph # (Auto) [place] # (Auto) Eos # (Auto) Baso # (Auto) PT INR APTT Sodium Potassium Chloride Carbon Dioxide BUN Creatinine Estimated GFR BUN/Creatinine Ratio Glucose Lactate 1.4 Calcium % Saturation Total Bilirubin AST ALT Alkaline Phosphatase Total Protein Albumin Globulin Albumin/Globulin Ratio SARS-CoV-2 (PCR) Negative Blood Type A Negative Antibody Screen Negative 05/20/22 05/21/22 05/21/22 21:45 04:55 04:55 WBC 5.0 RBC 3.38 L Hgb 9.1 L 8.8 L Hct 28.7 L 27.8 L MCV 82.2 MCH 26.0 MCHC 31.6 RDW 17.4 H Plt Count 274 Neut % (Auto) 70.3 Lymph % (Auto) 16.5 L [place] % (Auto) 8.7 Eos % (Auto) 3.9 Baso % (Auto) 0.6 Neut # (Auto) 3500 Lymph # (Auto) 800 L [place] # (Auto) 400 Eos # (Auto) 200 Baso # (Auto) 0 PT INR APTT Sodium Potassium Chloride Carbon Dioxide BUN Creatinine Estimated GFR BUN/Creatinine Ratio Glucose Lactate Calcium % Saturation 5 L Total Bilirubin AST ALT Alkaline Phosphatase Total Protein Albumin Globulin Albumin/Globulin Ratio SARS-CoV-2 (PCR) Blood Type Antibody Screen 05/21/22 04:55 WBC RBC Hgb Hct MCV MCH MCHC RDW Plt Count Neut % (Auto) Lymph % (Auto) [place] % (Auto) Eos % (Auto) Baso % (Auto) Neut # (Auto) Lymph # (Auto) [place] # (Auto) Eos # (Auto) Baso # (Auto) PT INR APTT Sodium 139 Potassium 4.0 Chloride 109 H Carbon Dioxide 23 BUN 18 Creatinine 1.01 Estimated GFR > 60 BUN/Creatinine Ratio 17.8 Glucose 92 Lactate Calcium 8.8 % Saturation Total Bilirubin 0.3 AST 16 L ALT 13 Alkaline Phosphatase 54 Total Protein 6.2 L Albumin 3.3 L Globulin 2.9 Albumin/Globulin Ratio 1.1 SARS-CoV-2 (PCR) Blood Type Antibody Screen [facility] Medical History Anesthesia complication BCC (basal cell carcinoma), face (~01/2022) Cancer of kidney (~2017) CKD (chronic kidney disease), stage III COVID-19 virus infection (02/22/22) Duodenal diverticulum Fatigue Gastrointestinal hemorrhage Hearing impaired Hiatal hernia History of anemia History of hemorrhoids BERENICE on CPAP Osteoarthritis Right inguinal hernia Surgical History History of colonoscopy History of esophagogastroduodenoscopy (EGD) History of left nephrectomy (2016) Hx of hernia repair (11/29/17) Hx of knee surgery (~1976) Status post hemorrhoidectomy Social History marital status: household members: spouse Tobacco & Substance Use Smoking Status: Former smoker alcohol intake: never substance use type: marijuana Assessment & Plan Assessment and plan (1) GI bleed: Status: Acute Assessment & Plan narrative: Mr. Haynes understands an EGD and the risks involved including but not limited to perforation of the esophagus or stomach in rare cases. He also understands the possibility we do not find a diagnosis or we missed the diagnosis. He would like to still proceed and he agrees that this is the best test to figure out what is going on. He has recently retired and he wants to live and enjoy his life wants to build a house. He is eager to proceed with this procedure he understands he had his questions answered and would like to proceed. Time Spent With Patient Critical Care time: I spent a total of [] minutes of critical care time on this patient's care today; this time is exclusive of procedural time.
--- NOTE | 2022-05-21 11:15 | DIET.CONS ---
Addendum entered by Starr Hewitt 05/21/22 11:36: RD approves note. -The patient is at much higher risk for medical and surgical complications because of his malnutrition.? This increases the difficulty and complexity of medical and surgical interventions and increases the chances of poor outcomes such as morbidity and mortality. Original Note: Dietary Consultation Note Admission Date: 05/20/2022 19:43 Assessment: 72 y/o M admitted for low BP and black stools. Upon RD screening, noticed MNA of 10 indicating risk of malnutrition. Met with pt at bedside to discuss current intake. Pt had knee surgery on Mar 10, which pt reports experiencing decreased appetite, N/V, and abdominal pain post op. Since then appetite has increased, however, now experiences early satiety and nausea x 2 months. Prior to surgery, pt reports having a large appetite, 3 meals/d, and being more active. UBW prior to surgery 215 lbs/97.5 kg. Pt has had severe wt loss of 7% in 1 month. Diet recall: B: (7-9am) 1 egg with maybe handful hash browns OR oatmeal (will eat 100%). Sometimes only 12 oz oatmeal. L: none. D: (6-7pm) 2 oz grilled salmon with 1 cup potatoes OR chx and rice OR pasta and/OR salad. Fluid: water and sparkling water. NFPE: moderate temporal and interosseous muscle wasting, boxed shoulders. Ht: 175.26 cm Wt: 90.718 kg BMI: 29.5 Last BM: 05/21/22 (05/21/22 10:16) MNA: 10 Gomez Score: 19 Diet: 05/21/22 00:01 NPO Diet Diet Modifications: NPO Type: NPO after Midnight Labs: RBC 3.38 X10^6/uL (4.5-5.9) L 05/21/22 04:55 Hgb 8.8 g/dL (13.5-17.5) L 05/21/22 04:55 Hct 27.8 % (41-53) L 05/21/22 04:55 Creatinine 1.01 mg/dL (0.66-1.25) 05/21/22 04:55 Lactate 1.4 mmol/L (0.7-2.1) 05/20/22 17:20 % Saturation 5 % (20-50) L 05/21/22 04:55 Nutrition Diagnosis: Severe acute malnutrition r/t early satiety, decreased appetite, and nausea resulting in diminished intake aeb 7% wt loss in 1 month, GI symptoms (early satiety, decreased appetite, and nausea) x2 months, moderate temporal and interosseous muscle wasting, boxed shoulders, and diet recall revealing 50% EER x2 months. Interventions: Discussed the importance of increasing protein intake in order to maintain lean body mass and energy. Encouraged pt to drink kcal/protein when appetite is lacking when discharged. Will send Ensure BID once no longer NPO with meals while hospitalized. EER: 6086-7848 kcal (25-26 kcal/kg per BMI), 135-160 g protein (1.5-1.8 g/kg per malnutrition) Monitoring/Evaluations: RD f/u 3 days Electronically Signed by: Jackie Unger 05/21/22 11:15 Clinical Dietitian [address] [address]
--- NOTE | 2022-05-21 12:11 | P.OP.EGD_ITS ---
Operative Date/Time/Diagnoses Date of procedure: 05/21/22 Time of procedure: 11:00 Pre-op diagnosis: melena. Post-op diagnosis: other (pyloric ulcer. ) Procedure Notes Procedure in detail: Patient was taken to the endoscopy suite and placed left lateral decubitus position. Time-out was performed. Conscious sedation was induced with the help of anesthesiologist. The EGD scope was introduced into the mouth and advanced down the esophagus and into the hiatal hernia initially and eventually into the stomach. Photographs were taken of the hiatal hernia as well as the GE junction and the esophagus. In the pylorus there was an area with an obvious ulceration. A photograph was taken of this. There were also some linear small ulcerations on the opposite side of this larger one. The pylorus was passed and the duodenum was entered. The mucosa of the duodenum appeared normal but I did see a duodenal diverticulum. A photograph was taken of this. Again the scope was pulled out to examine and biopsy the ulcerative lesions. There was no active bleeding at these sites. Biopsy forceps was used to obtain several different sweeps of tissue from the larger ulcer there was also a smaller raised portion a little further down closer to the pylorus which was also biopsied. Many biopsies were obtained. A 2nd set of specimens was obtained from the linear lesions across from those larger ones. These probably explain the source of the melena. There was no active bleeding. There was a hiatal hernia. The scope was withdrawn and the patient tolerated the procedure well and went in good condition to the postoperative care unit Findings: gastric ulcer (Pyloric ulcer), hiatal hernia and possible cancer Specimen(s): other (1. Pyloric lesions 2. Linear pyloric lesions ) Complications: none Impression: The area seen probably is the source of the melena. It could be an ulcer but ca n not rule out based on its appearance a malignant process. Several copious biopsies were taken. Post-procedure Recommendations: No ASA/NSAIDs and Continue medication(s) (Protonix) Plan for aftercare: Based on biopsy results if the ulcer is H pylori positive patient should receive treatment for that. If any malignant process is identified a referral will be made to Oncology. At this time would await biopsy results for any further recommendations. Patient may be discharged home when his hemoglobin is stable and he is tolerating a regular diet and his pain is controlled.
--- NOTE | 2022-05-21 12:30 | SUR.PHASEI ---
Report called to Yajaira.
--- NOTE | 2022-05-21 12:35 | SUR.PHASEI ---
Patient transferred to floor on a stretcher by Taqu[employer] Albrecht
[2022-05-21] MEDS: SODIUM CHLORIDE 0.9% 1,000 ML 125 ML IV (16:39)
[2022-05-22 06:41] VITALS: BP 111/70; PULSE 68; RESP 18; TEMP 37.1; O2SAT 96
[2022-05-22 07:01] LABS: Add Manual Diff / Slide Review NO; Basophils Absolute Auto 0 /uL (0-100); Basophils Percent Auto 0.6 % (0-2); Eosinophils Absolute Auto 200 /uL (0-450); Eosinophils Percent Auto 3.7 % (2-4); Hematocrit 26.3 % (41-53); Hemoglobin 8.4 g/dL (13.5-17.5); Lymphocytes Absolute Auto 800 /uL (1100-4500); Lymphocytes Percent Auto 17.4 % (25-40); Mean Corpuscular HGB Conc 31.9 % (30-36); Mean Corpuscular Hemoglobin 26.2 PG (26-34); Monocytes Absolute Auto 400 /uL (0-900); Monocytes Percent Auto 9.2 % (3-14); Neutrophils Absolute Auto 3100 /uL (1500-7000); Neutrophils Percent Auto 69.1 % (50-75); Platelet Count 246 X10^3/uL (150-400); Red Blood Cell Count 3.21 X10^6/uL (4.5-5.9); Red Cell Distribution Width 17.6 % (11.6-14.8); White Blood Cell Count 4.5 X10^3/uL (4.5-11.0)
[2022-05-22 07:11] LABS: BUN Creatinine Ratio 17.2 (6-22); Blood Urea Nitrogen 17 mg/dL (9-20); Calcium 10.1 mg/dL (8.4-10.2); Carbon Dioxide 22 mmol/L (22-32); Chloride 108 mmol/L (98-107); Estimated Glomerular Filt Rate > 60 mL/min (>60); Glucose 86 mg/dL (80-110); HEMOLYSIS 21 (0-50); Potassium 4.1 mmol/L (3.4-5.1); Sodium 138 mmol/L (137-145)
[2022-05-22 07:47] VITALS: O2SAT 95
[2022-05-22 08:27] VITALS: BP 122/72; PULSE 65; RESP 18; TEMP 36.2; O2SAT 96
--- NOTE | 2022-05-22 11:57 | P.DS_ITS ---
History of Present Illness History of Present Illness Chief complaint: BP LOW/STOOL IS BLACK Narrative: Patient is a 72-year-old white male who presents today with increased fatigue. Patient has a history over the last 2 years of increasing fatigue intermittent black tarry stools. Patient had EGD and colonoscopy 2 years ago which showed a hiatal hernia but no other definitive findings. Patient has had persistent fatigue and pretty significant shortness of breath intermittently. No other significant change. No fevers no chills no nausea no vomiting. No real abdominal pain. Patient had decided he could fix his hiatal hernia by himself and did not present to the doctor at any time. No other changes. Patient had knee surgery on March 10 and since that time has been increasingly fatigued and short of breath. feels like he is pale. But he has made no other changes. Since surgery and maybe for the last 2 years he is had increasing feeling of feeling full. She is been worse over the last month. He is lost 20 lb over the last month and has a big appetite but then once he starts to eat he fills up quickly. Otherwise no significant change. He is had no night sweats. Or other change. Patient otherwise is healthy with no major medical problems. No significant family history. No other changes Discharge Providers Provider Date of admission: 05/20/22 19:43 Discharge Date: 05/22/22 Primary care physician: TATUM Mendiola Consults: 05/20/22 20:01 Consult to General Surgery Urgent Comment: Consulting Provider: Johnson Fontanez Reason for consultation: gi bleed Has provider been notified: Yes Discharge provider: Sd White MD Summary Hospital Course Discharge Diagnosis: GI bleed Blood-loss anemia Weight loss Fatigue Hospital Course: GI bleed. Upper. Patient was placed on PPI. Surgeons were consulted and EGD was done. EGD showed multiple ulcers not actively bleeding. Biopsies were done. Pathology results are not back. Continued to slowly go down in his hematocrit but probably secondary to hydration. No evidence of ongoing bleeding. Patient will go home on PPI. Discussed the significance of this. And follow-up with me Tuesday for repeat blood work and evaluation. Blood-loss anemia. Patient with iron at home. Will continue. Follow from there. Appears to be stable at this time. Will follow as an outpatient. No need for blood transfusion. Weight loss felt to be secondary to ulcer disease. Will follow as an outpatient make sure he continues to improve. With PPI treatment. Fatigue. Dane to be secondary to his blood loss anemia. Will be followed as an outpatient. Exam Vital Signs (past 8 hours): - 05/22/22 06:41 05/22/22 07:47 05/22/22 08:27 Temperature 98.7 F 97.2 F L Pulse Rate 68 65 Respiratory Rate 18 18 Blood Pressure 111/70 122/72 Pulse Oximetry 96 95 96 Oxygen Delivery Method Room Air Oxygen Flow Rate 0 0 0 Oxygen Delivery Method Room Air Oxygen Flow Rate 0 Narrative Exam Narrative: Alert elderly male in no acute distress. Lungs are clear heart regular rate and rhythm abdomen is soft positive bowel sounds nontender extremities without cyanosis clubbing edema Objective Labs 05/22/22 06:25 05/22/22 06:25 Labs: Laboratory Results - last 24 hr 05/22/22 05/22/22 06:25 06:25 WBC 4.5 RBC 3.21 L Hgb 8.4 L Hct 26.3 L MCV 82.0 MCH 26.2 MCHC 31.9 RDW 17.6 H Plt Count 246 Neut % (Auto) 69.1 Lymph % (Auto) 17.4 L [place] % (Auto) 9.2 Eos % (Auto) 3.7 Baso % (Auto) 0.6 Neut # (Auto) 3100 Lymph # (Auto) 800 L [place] # (Auto) 400 Eos # (Auto) 200 Baso # (Auto) 0 Sodium 138 Potassium 4.1 Chloride 108 H Carbon Dioxide 22 BUN 17 Creatinine 0.99 Estimated GFR > 60 BUN/Creatinine Ratio 17.2 Glucose 86 Calcium 10.1 [facility] [place] Medical History Anesthesia complication BCC (basal cell carcinoma), face (~01/2022) Cancer of kidney (~2017) CKD (chronic kidney disease), stage III COVID-19 virus infection (02/22/22) Duodenal diverticulum Fatigue Gastrointestinal hemorrhage Hearing impaired Hiatal hernia History of anemia History of hemorrhoids BERENICE on CPAP Osteoarthritis Right inguinal hernia Surgical History History of colonoscopy History of esophagogastroduodenoscopy (EGD) History of left nephrectomy (2016) Hx of hernia repair (11/29/17) Hx of knee surgery (~1976) Status post hemorrhoidectomy Social History marital status: household members: spouse Smoking Status: Former smoker alcohol intake: never substance use type: marijuana Discharge Assessment & Plan Assessment and Plan Assessment: Gastric Plan of Treatment: Discharge home. Follow-up this week Discharge Plan Discharge Plan Patient Disposition: Home Discharge orders & Medications Prescriptions: New omeprazole 40 mg capsule,delayed release(DR/EC) 40 mg PO DAILY Qty: 90 0RF Continued cholecalciferol (vitamin D3) 5,000 unit capsule 5,000 unit PO DAILY ginkgo biloba 40 mg tablet 120 mg PO DAILY ergocalciferol (vitamin D2) 400 unit tablet 400 unit PO DAILY acetaminophen 500 mg Tablet 500 mg PO Q6H PRN (Reason: Pain) ascorbic acid (vitamin C) [Vitamin C] 1,000 mg Tablet 1,000 mg PO DAILY ferrous sulfate [iron] 325 mg (65 mg iron) Tablet 325 mg PO DAILY Follow up/Referrals: Annette Nur MD [Physician] - (call with any questions about EGD procedure. Or if you have not heard about your pathology/biopsy results in 7-10 days. ) Ila Page ARNP [Primary Care Provider] - Sd White MD [Physician] - 05/26/22 (Patient to call and make appointment on Tuesday) Discharge Health Status Multidrug resistant organism: No MDRO Diet/Activity/Treatments Diet: Diet as Tolerated Skin/Wound/Dressing Care Report to your healthcare provider any signs of infection, such as:: chills, fever Visit Report/Discharge Packet Instructions: DI for Gastric Ulcer Stand Alone Forms: Patient Portal/API, Stroke Signs & Symptoms Discharge Data Primary Care Provider: Ila Page Attending Provider: Dalila Abdullahi
== END 2022-05-22 12:31 | disposition home or self-care (01) ==
LOC: ED 18:42 → AC 19:43
PROVIDERS: Emergency Medicine; Family Medicine; Surgery; Admitting Provider Family Medicine; Emergency Provider Emergency Medicine; PCP Registered Nurse; Visit Provider Family Medicine
PROC: 0DJ08ZZ Inspection of Upper Intestinal Tract, Via Natural or Artificial Opening Endoscopic (ICD-10-PCS; CPT 43235; principal; 2022-05-21 10:45)
DX: K25.9 Gastric ulcer, unspecified as acute or chronic, without hemorrhage or perforation (principal); R42 Dizziness and giddiness; K44.9 Diaphragmatic hernia without obstruction or gangrene; D50.0 Iron deficiency anemia secondary to blood loss (chronic); R53.83 Other fatigue; R63.4 Abnormal weight loss
CPT/HCPCS: 43239; 36415; 80048; 80053; 83605; 85014; 85018; 85025; 85610; 85730; 86850; 86900; 86901; 87635; 93005; 93010; 96361; 96374; 96375; 99232; 99284; C9803; G0378; C9113; J2060; J2704; J3010

== ENCOUNTER 2022-07-09 06:32 | Day surgery (SDC) | payer OTHER, SELFPAY ==
[2022-05-20 20:02] VITALS: BMI 29.5
[2022-07-07 14:44] VITALS: BMI 30.1
[2022-07-09 06:52] VITALS: BP 138/83; PULSE 65; RESP 20; TEMP 37.2; O2SAT 96; BMI 29.5
[2022-07-09] MEDS: LACTATED RINGERS 1,000 ML 42 ML IV (07:03)
--- NOTE | 2022-07-09 07:24 | SUR.OPER ---
Supine on padded OR bed, head on pillow, arms secured on padded arm boards at <90 degrees abduction, legs uncrossed, safety belt at waist, tape over blanket over lower left leg, right leg draped free.
--- NOTE | 2022-07-09 07:29 | PM.PREOP ---
Pre-operative Note Interval Note History & Physical reviewed/Exam performed by Physician: Yes Changes to H&P: No
--- NOTE | 2022-07-09 07:56 | P.OP_ITS ---
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 CPT code 37857, right knee Same procedure as scheduled: Yes Indications: The patient is a 72-year-old male that is status post right total knee arthroplasty on 04/09/[address] Ching. Unfortunately he got sick during the postoperative period and missed a lot of physical therapy appointments. He has persistent knee stiffness with a range of motion of 0-90 degrees on the right side. He is feeling much better now and he recently got engaged in physical therapy but has not made significant progress. He has been indicated for manipulation under anesthesia for knee arthrofibrosis. We discussed he is about 3 months out from his knee replacement. Would start with a manipulation under anesthesia. If this does not achieve significant range of motion or if there is recurrence would consider arthroscopic lysis of adhesions. Discussed the importance of reestablishing physical therapy afterwards to work on his range of motion. Discussed that range of motion kept after manipulation under anesthesia is generally half the gain in range of motion. He understands and agrees with the plan. I would like to proceed with the procedure. The risks benefits and alternatives were discussed with the patient in detail including need for additional procedures, persistent pain, stiffness, fracture, risks of general anesthetic including cardiac and pulmonary conditions stroke, heart attack, . Consent was signed. Surgeon: Elizabeth Gilbert Click Yes if Unassisted: Yes Anesthesia Type: General Operative Notes Findings: Arthrofibrosis right knee starting range of motion 0? extension to 90? of flexion. Well-healed surgical incision no erythema or signs of infection. Left knee with range of motion 0-130 degrees measured with goniometer Following manipulation under anesthesia on the right knee ending range of 0? to 124? range of motion Closure Type: not applicable Specimen(s): none sent Estimated Blood Loss (mL): 0 Blood products transfused: none Tourniquet time (min): 0 Procedure in detail: Patient was seen in the preoperative area the site of procedure was marked and informed consent confirmed. The patient was brought back to the operating room by the anesthesia team positioned supine on the operative table. Bony prominences well padded. General anesthetic was administered. A formal time- out procedure was performed confirming the patient's side and site of surgery no antibiotics were indicated for this closed procedure manipulation under anesthesia. Attention was turned to the knees using a goniometer the pre procedure range of motion was measured. For the right knee this was 0-90 degrees and for the left knee this was 0-130 degrees. The right knee was then gently manipulated with the hip flexed and extended using gravity to break up the scar tissue and then with increased flexion of the knee using short lever arms. Adhesions were palpated and audibly giving way. The process was repeated several times. Final range of motion is given as above. This was compared to the contralateral side. The patient was then awoken and returned to the recovery area in good condition having tolerated the procedure well. Complications: none Post-operative Condition: stable Disposition: PACU Plan for aftercare: Weightbear as tolerated. A steroid taper to help reduce the scarring. We will start physical therapy and range of motion immediately.
[2022-07-09 08:06] VITALS: BP 107/65; PULSE 68; RESP 16; TEMP 36.8; O2SAT 95
[2022-07-09] MEDS: ACETAMINOPHEN IV 1,000 MG/100 ML VIAL 400 MG IV (08:16)
[2022-07-09] MEDS: ONDANSETRON 4 MG/2 ML INJ IV (08:22)
[2022-07-09] MEDS: OXYCODONE IR 5 MG TABLET PO (08:23)
[2022-07-09 08:27] VITALS: BP 104/74; PULSE 56; RESP 16; O2SAT 95
[2022-07-09 08:28] VITALS: BP 106/59; PULSE 57; RESP 16; O2SAT 98
[2022-07-09 08:30] VITALS: BP 120/62; PULSE 57; RESP 16; TEMP 36.7; O2SAT 99
[2022-07-09 08:32] VITALS: BP 123/55; PULSE 57; RESP 16; TEMP 36.7; O2SAT 99
== END 2022-07-09 08:52 | disposition home or self-care (01) ==
PROVIDERS: PCP Registered Nurse; Referring Provider Orthopaedic Surgery Foot and Ankle Surgery; Visit Provider Orthopaedic Surgery Foot and Ankle Surgery
PROC: (CPT 27570; principal; 2022-07-09 07:45)
DX: T84.82XA Fibrosis due to internal orthopedic prosthetic devices, implants and grafts, initial encounter (principal)
CPT/HCPCS: 27570; J0131; J1100; J2405; J2704; J3010

== ENCOUNTER → 2022-11-12 11:13 | Outpatient (CLI) | payer MEDICARE, SELFPAY ==
[2022-05-20 20:02] VITALS: BMI 29.5
--- NOTE | 2022-11-12 11:19 | DI.CT.S_ITS ---
PROCEDURE: CT ABDOMEN RENAL PROTOCOL INDICATIONS: Personal history of other malignant neoplasm of ki TECHNIQUE: Optional 5 mm thick noncontrast images acquired from the diaphragm to the iliac crests. After the administration of intravenous contrast, 5 mm thick images again acquired from the diaphragm to the iliac crests in the arterial and urographic phases. 5 mm thick coronal and sagittal reformats were then acquired. For radiation dose reduction, the following was used: automated exposure control, adjustment of mA and/or kV according to patient size. COMPARISON: [facility], CT, CT ABDOMEN RENAL PROTOCOL, 02/06/2018, 8:36. [facility], US, US RENAL COMPLETE, 03/30/2022, 10:37. [facility], CT, CT ABDOMEN WITHOUT CONTRAST, 06/17/2020, 16:54. FINDINGS: Image quality: Excellent. Lung bases: Lung bases are clear. Heart size is normal. Large hiatal hernia. Genitourinary: Enhancing nodule at the superior aspect of the left nephrectomy bed measuring 2.3 x 2.3 cm, (06/26), new. This abuts the left adrenal lateral limb. No hydronephrosis. No right renal mass. Small cyst or scarring in the right kidney. Other solid organs: Liver is normal in size. Enhancing focus in the right lobe of the liver, (3/10). A few hypodense foci in the liver are again seen. Gallbladder is decompressed. Biliary system is non dilated. Pancreas enhances normally. Spleen is normal in size and enhancement. No convincing adrenal nodules. Peritoneum and bowel: Unenhanced bowel loops are normal in wall thickness and caliber. Diverticulosis. The partially visualized appendix is not dilated. No free fluid or air. Nodes and vessels: No retroperitoneal or mesenteric adenopathy by size criteria. Aorta and inferior vena cava are normal in caliber. Bones: No suspicious bony lesions. Small vertebral body osteophytes. No vertebral body compression fractures. Miscellaneous: No ventral hernias. IMPRESSION: 1. Small new enhancing mass in the left nephrectomy bed measuring 2.3 cm most consistent with recurrent RCC or metastatic disease. 2. Small enhancing focus in the right lobe of the liver. This could represent a small hemangioma or metastatic disease or perfusion abnormality. Recommend definitive characterization with MRI liver. 3. No enlarged lymph nodes seen. Dictated by: Jean Claude Downs M.D. on 11/12/2022 at 14:13 Approved by: Jean Claude Downs M.D. on 11/12/2022 at 14:25
[2022-11-12 11:41] LABS: Estimated Glomerular Filt Rate > 60 mL/min (>60)
== END ==
PROVIDERS: Specialist; PCP Registered Nurse; Referring Provider Urology; Visit Provider Urology
DX: C64.9 Malignant neoplasm of unspecified kidney, except renal pelvis (principal); N28.89 Other specified disorders of kidney and ureter; Z85.528 Personal history of other malignant neoplasm of kidney
CPT/HCPCS: 36415; 74170; 82565; Q9967

== ENCOUNTER → 2024-05-04 15:26 | Outpatient (CLI) | payer MEDICARE, SELFPAY ==
[2022-05-20 20:02] VITALS: BMI 29.5
--- NOTE | 2024-05-04 15:27 | DI.RAD.S_ITS ---
PROCEDURE: FL BARIUM SWALLOW INDICATIONS: HIATAL HERNIA COMPARISON: None. FINDINGS: Function: There is normal esophageal peristalsis. No elicited gastroesophageal reflux. There is normal transit of a calibrated barium tablet through the esophagus into the thoracic portion of the stomach including approximately 40% of the stomach. There is some redundancy of the distal esophagus and a small area of dilated esophagus with gastric mucosa making this a small hiatus hernia. Morphology: Air-contrast images demonstrate normal mucosal morphology. Single contrast views show no esophageal strictures, extrinsic mass effects, or diverticula. Limited images of the stomach demonstrate herniation of approximately 40% of the body of the stomach into the chest IMPRESSION: Large segment of herniated stomach in the chest with redundancy of the distal esophagus and a small hiatus hernia proximal to the herniated stomach. No reflux was demonstrated. Dictated by: José Miguel Hitchcock M.D. on 05/04/2024 at 16:10 Approved by: José Miguel Hitchcock M.D. on 05/04/2024 at 16:56
== END ==
PROVIDERS: PCP Registered Nurse; Referring Provider Surgery; Visit Provider Surgery
DX: K44.9 Diaphragmatic hernia without obstruction or gangrene (principal)
CPT/HCPCS: 74220